=== PATIENT | female | born 1940 | race Caucasian/White ===

== ENCOUNTER 2017-07-02 16:46 | Inpatient (IN) | payer MEDICARE ==
[~2017-07-02 16:46] MED LIST: ISOVUE-370 76%-LOCM 1 ML ONE
[2017-07-02] MEDS ORDERED: Naloxone HCl 0.4 mg/ml Vial ONE (17:03)
--- NOTE | 2017-07-02 17:17 | CT ---
CT HEAD NONCONTRAST 07/02/17 HISTORY: Unresponsive. FINDINGS: There is no evidence of acute intracranial hemorrhage or infarct. The ventricles appear normal in si ze, shape and position. Diffuse cortical atrophy and chronic ischemic small vessel disease are appar ent. There is no mass effect or shift of midline structures. The visualized paranasal sinuses remain well aerated. IMPRESSION: No acute intracranial abnormalities are demonstrated on noncontrast CT head. POS: [facility]
[2017-07-02 17:36] LABS: #Eosinphils 0.1 thou/uL (0.0-0.7); #Lymphocytes 1.3 thou/uL (1.20-3.40); #Monocytes 0.1 thou/uL (0.11-0.59); #Neutrophils 8.4 thou/uL (1.40-6.50); %Basophils 0.3 % (0.0-1.0); %Eosinophils 0.9 % (0.0-10.0); %Lymphocytes 12.9 % (21.0-51.0); %Monocytes 0.8 % (0.0-10.0); Hematocrit 50.2 % (36.0-47.0); Mean Platelet Volume 8.4 fL (7.4-10.4); Red Blood Cell (RBC) Count 5.58 mill/uL (4.20-5.40); White Blood Cell (WBC) Count 9.9 thou/uL (4.8-10.8)
[2017-07-02] MEDS ORDERED: Magnesium Sulfate 2 GM/100 ML BAG ONE (17:46)
[2017-07-02 17:54] LABS: ALT (SGPT) 29 U/L (8-55); AST (SGOT) 47 U/L (5-34); Alkaline Phosphatase 628 U/L (40-150); Anion Gap 19 mmol/L (10-20); BUN (Urea Nitrogen) 25 mg/dL (9.8-20.1); Bilirubin, Total 0.9 mg/dL (0.2-1.2); Calc. Creatinine Clearance 0 mL/min (70-130); Calcium 9.1 mg/dL (7.8-10.44); Carbon Dioxide 16 mmol/L (23-31); Chloride 98 mmol/L (98-107); Estimated GFR-MDRD 25; Globulin 2.3 g/dL (2.4-3.5); Protein, Total 5.9 g/dL (6.0-8.3)
[2017-07-02 17:57] LABS: Troponin I Less than 0.010 ng/mL (< 0.028)
[2017-07-02 17:59] LABS: Lactic Acid - Sepsis 4.1 mmol/L (0.5-2.2)
--- NOTE | 2017-07-02 18:48 | RAD ---
CHEST ONE VIEW 07/02/17 HISTORY: 76-year-old female with altered mental status presents to the ER unresponsive. Monitor leads overlie the chest. Heart size is within normal limits. There is some atherosclerosis o f the aorta. There appear to be some mild linear and interstitial chronic appearing changes. No conf luent pneumonia, overt edema or pleural effusion. IMPRESSION: No acute intrathoracic disease. POS: [facility]
[2017-07-02] MEDS ORDERED: Norepinephrine 8 MG/0.9% NS 250 ML ONE (19:48)
--- NOTE | 2017-07-02 20:53 | CT ---
CT ANGIOGRAM CHEST CT ANGIOGRAM ABDOMEN Exams include 3D rendering. 07/02/17 HISTORY: 76-year-old female with history of abdominal aortic aneurysm. Patient was brought in unresponsive. P atient's GFR was 25 with a creatinine of 1.9. The ER physician was aware of this renal function and indicated that he still wanted the exam performed and that they would be giving the patient IV fluid s. CT ANGIOGRAM CHEST: Exam was performed with aortic dissection protocol. The pulmonary arteries are not sufficiently opacified to evaluate for potential pulmonary embolism. There are atherosclerotic changes of the aorta. Three vessel coronary artery calcific disease. There is evidence of a moderate sized hiatal hernia with fluid within the esophagus, evidence for reflux. There are patchy interstitial, linear, and reticulonodular parenchymal changes bilaterally which ce rtainly could be consistent with some chronic lung disease. There is also some dependent positional changes. In the abdomen, there are atherosclerotic changes of the aorta but no evidence for abdominal aortic aneurysm. There is a calcified plaque at the origin of the celiac artery with some associated stenos is. The visualized liver, pancreas, spleen, and adrenal glands are unremarkable. No renal calculus o r evidence for acute obstruction. There are postoperative laminectomy and pedicle screw placement changes at L4 and with some associated anterolisthesis and some associated artifact. There is noted to be some dilatation of the small bowel including the proximal and mid small bowel. There is also some moderate gas and fluid within the colon which is mildly distended. There is a focal area of jeanne rowing of the right colon with what appears to be potentially some enhancement. I would be concerned of the possibility of this representing a colonic mass or focal area of colonic infection as a less likely possibility. There is some atherosclerotic disease involving the right and left common iliac arteries with some multifocal mild stenotic changes as well as some mild stenosis of the distal abd ominal aorta. IMPRESSION: No CT evidence for aortic dissection or evidence for thoracic or abdominal aortic aneurysm. Some abn ormally dilated small bowel with some air fluid levels as well as some air and fluidy fecal materia l throughout a minimally distended colon raising concern for a bowel obstruction or significant ileu s or some type of nonspecific ileocolitis. Focal area of narrowing in the right colon. I favor this being a potential neoplasm or focal area of infection or inflammation. There is some very tiny trace intraperitoneal fluid noted. Postoperative changes of the lumbar spine. Hiatal hernia with evidence for gastroesophageal reflux. Evidence for bilateral pleural and parenchymal lung changes, possibly chronic. Dilatation of the common bile duct without evidence for acute obstruction. Other findings a s above. POS: [facility]
[2017-07-02 21:18] LABS: Troponin I Less than 0.010 ng/mL (< 0.028)
[2017-07-02] MEDS ORDERED: Norepinephrine 8 MG/250 ML BAG IVPB PRN (22:05)
[2017-07-02] MEDS ORDERED: Promethazine HCl 25 MG/ML VIAL SLOW IVP SCH (22:45)
[2017-07-02] MEDS ORDERED: Acetaminophen 325 MG TAB PO PRN (23:53)
[2017-07-02] MEDS ORDERED: Norepinephrine 8 MG/0.9% NS 250 ML IVPB SCH (23:53)
[2017-07-03 00:12] LABS: Troponin I Less than 0.010 ng/mL (< 0.028)
[2017-07-03] MEDS: Sodium Chloride 0.9% 1,000 ML IV SCH ×4 (00:12→19:52)
[2017-07-03] MEDS: metroNIDAZOLE 500 MG in Premix Bag 1 BAG IVPB SCH ×3 (01:31→17:50)
[2017-07-03] MEDS ORDERED: Sodium Chloride 0.9% 500 ML IVPB SCH (02:30)
[2017-07-03] MEDS ORDERED: Acetaminophen 650 MG Suppository PR PRN (04:32)
--- NOTE | 2017-07-03 04:53 | HP ---
PRIMARY CARE PHYSICIAN: Dr. Olimpia Higgins CHIEF COMPLAINT: Nausea, vomiting and lethargy. HISTORY OF PRESENT ILLNESS: The history of present illness is taken primarily from the patient's hu sband and daughters who are at the bedside. 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 She was in her usual state of health until a coup le of days ago. Her daughter says that in the last few days she has not been herself. She was havi ng some knee pain and was given some doxepin and gabapentin in which she had a fairly bad reaction t o where she was unable to read very well and was having trouble sleeping and was more or less lethar gic. She got better for a day or so and then yesterday she vomited once and began complaining of so me abdominal discomfort and feeling gassy. She had an appointment today to have a preop evaluation for knee surgery. When she was in the physician's office today she began feeling nauseated again an d was having the return of the abdominal pain. She managed to make it through the appointment and t hen towards the end of the appointment, she started needing to vomit again. The orthopedic doctor pat ave her a prescription for Zofran. Her got it filled and as they were leaving gave her 8 mg of the Zofran and on the way from the doctor's office, she began to fall asleep and get drowsy. He r daughter was able to wake her up about 30 minutes later, but then she became almost completely unr esponsive. Because of this, they made a detour to the ER in [place] where she was found to be hypo tensive and in acute renal failure and had a CT scan done which showed some findings consistent with a possible small-bowel obstruction or ileus and a questionable mass in the colon. For this reason, she was transferred to our facility for further evaluation and treatment. During this time she den ied having any fever or chills. No chest pain or shortness of breath. When asked if she has ever h ad a colonoscopy, she says she gets 1 every [address] Gomez and they have been normal. It was noted she had a PET scan a while back, but they said this was not for cancer, but was to try to evaluate for Alzheimer disease, which they said she did not have. REVIEW OF SYSTEMS: CONSTITUTIONAL: Again, no fevers, chills, no night sweats, no weight loss. She has had poor oral i ntake. HEENT: No headaches, no dizziness, no visual changes, no sore throat, rhinorrhea, neck pain, no deloris nopathy. PULMONARY: No hemoptysis, no cough, no wheezing. CARDIOVASCULAR: She denies any chest pain, no shortness of breath, no PND, no orthopnea. GASTROINTESTINAL: As in the history of present illness. GENITOURINARY: No urinary frequency, hematuria, no hesitancy. NEUROLOGIC: No focal weakness, numbness, no seizures. PSYCHIATRIC: No symptoms of anxiety or depression. SKIN AND INTEGUMENT: No skin changes. No rash. PAST MEDICAL HISTORY: Significant for gastroesophageal reflux disease, hypertension, osteoarthritis , and hypothyroidism. PAST SURGICAL HISTORY: She has had spinal stenosis surgery, hysterectomy, and a tummy tuck. ALLERGIES: SULFA, BENADRYL and MORPHINE. FAMILY HISTORY: Significant for lung cancer and hypertension. SOCIAL HISTORY: She is a nonsmoker, nondrinker. She is . MEDICATIONS: Lisinopril 10 mg daily, levothyroxine 88 mcg daily, [place] 7.5 one tablet q.6 hours as needed, Nexium 20 mg daily, Lipitor 20 mg at bedtime, and amlodipine 5 mg daily as needed. PHYSICAL EXAMINATION: GENERAL: She is alert and oriented at this time. She appears to be in some mild distress due to ab dominal discomfort. VITAL SIGNS: Her blood pressure was 105/64, heart rate 96. Respiratory rate is 18. She is afebril e. HEENT: Pupils are equal, round, and reactive. Extraocular muscles are intact. Sclerae are anicter ic. Throat no erythema, no exudates. NECK: No adenopathy, no bruits. LUNGS: Clear. No wheezing, no rales. CARDIOVASCULAR: She has a normal S1, S2. I did not appreciate an S3 or S4. No murmurs, clicks, no rubs. ABDOMEN: Soft, it is mildly distended, it is tympanic to percussion. She has got bowel sounds, but they are very diminished. She has got some diffuse tenderness, but it is localized more on the lef t quadrant. EXTREMITIES: She has got trace pedal edema. NEUROLOGICALLY: The exam is nonfocal. LABORATORY DATA: White blood cell count 9.9, hemoglobin 15.9, hematocrit is 50.2, platelet count is 237. Sodium 128, potassium 5.4, chloride is 98, CO2 16, BUN 25, creatinine 1.92, glucose is 155. She had a lactic acid of 4.1. TSH was 6.0562. Repeat lactic acid is 1.7. ASSESSMENT AND PLAN: 1. This is a pleasant 76-year-old female that presented to the emergency room initially with hypote nsion, abdominal pain, nausea and vomiting. She also has an elevated creatinine of 1.92 and some hy perkalemia and acidosis. I suspect that the patient's hypotension as well as acute renal failure is likely due to prerenal azotemia due to a combination of nausea, vomiting, poor oral intake and rae nopril. 2. Abdominal pain. CT findings suggest a small-bowel obstruction with some questionable area of in flammation versus a mass. She has had colonoscopies in the past which have been negative; however, it is noted that her alkaline phosphatase is elevated as well, the etiology of which is unknown. We will go ahead and consult Gastroenterology as well as General Surgery to help sort out her abdomina l issues. Should she continue to have nausea and vomiting, then we would likely need to place an NG tube to help decompress the stomach. 3. Hyponatremia, I suspect this is related to volume depletion and hopefully this should correct wi th rehydration. If not, then we will do studies to help determine the etiology of the hyponatremia. Her TSH is elevated, I suspect that she is under replaced. Once she is able to tolerate oral medi cations, then we will likely need to increase her levothyroxine dose and again with acute renal fail ure, I suspect this should improve with hydration, if not, then we will check a renal ultrasound and consult Nephrology.
[2017-07-03 04:57] LABS: Anion Gap 12 mmol/L (10-20); BUN (Urea Nitrogen) 33 mg/dL (9.8-20.1); Calc. Creatinine Clearance 29 mL/min (70-130); Calcium 7.1 mg/dL (7.8-10.44); Carbon Dioxide 16 mmol/L (23-31); Chloride 105 mmol/L (98-107); Estimated GFR-MDRD 30
[2017-07-03 05:28] LABS: Band 10 % (5-11); Hematocrit 41.8 % (36.0-47.0); Mean Platelet Volume 8.8 fL (7.4-10.4); Metamyelocyte 5 % (0-0); Neutrophil 78 % (42-75); Red Blood Cell (RBC) Count 4.69 mill/uL (4.20-5.40); White Blood Cell (WBC) Count 11.9 thou/uL (4.8-10.8)
[2017-07-03] MEDS ORDERED: FLU VACC TS2017-18 (>65YR) 0.5 ML SYRINGE IM ONE (09:00)
[2017-07-03] MEDS ORDERED: Sodium Chloride 0.9% 1,000 ML IV SCH (09:00)
[2017-07-03] MEDS: Famotidine/PF 20 mg/2ml Vial SLOW IVP SCH (09:45)
[2017-07-03] MEDS: Heparin 5,000 UNITS/ML VIAL SC SCH ×3 (09:45→19:42)
[2017-07-03] MEDS: Fentanyl 100 MCG/2 ML VIAL SLOW IVP PRN ×4 (10:22→17:51)
--- NOTE | 2017-07-03 11:32 | CON ---
DATE OF CONSULTATION: 07/03/2017 CONSULTING PHYSICIAN: Hospitalist group. REASON FOR CONSULTATION: Septic shock. HISTORY OF PRESENT ILLNESS: Mrs. Bass is a 76-year-old female who was admitted yesterday with low blood pressure. She was seen in an orthopedist's office yesterday. She was being worked up for kne e pain. She began complaining of abdominal discomfort. She passed out at some point. She was brou ght here and found to be hypotensive. She was fluid resuscitated. She has been started on Levophed . She underwent a CT of the abdomen which demonstrated focal narrowing in the right colon with radi ologist favoring this either being potential neoplasm or an area of inflammation/colitis. She also had dilatation of common bile duct without evidence of obstruction. Today, she feels a little devon r after fluid resuscitation, but she is still requiring a Levophed drip. PAST MEDICAL HISTORY: 1. Hypertension. 2. Gastroesophageal reflux. 3. Hypothyroidism. 4. Osteoarthritis. PAST SURGICAL HISTORY: 1. Surgery for spinal stenosis. 2. Hysterectomy. 3. Tummy tuck. FAMILY MEDICAL HISTORY: Remarkable for lung cancer and hypertension. SOCIAL HISTORY: Quit smoking about 30 years ago. 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 ALLERGIES: SULFA, BENADRYL, MORPHINE. MEDICATIONS PRIOR TO ADMISSION: Lisinopril 10 mg daily, levothyroxine 88 mcg daily, [place] 7.5 mg e very 6 hours as needed, Nexium 20 mg daily, Lipitor 20 mg daily, amlodipine 5 mg daily. REVIEW OF SYSTEMS: She has had abdominal pain. She has had no fever or chills. No hematemesis, me desire or hematochezia, hematuria, or dysuria. PHYSICAL EXAMINATION: VITAL SIGNS: Temperature 99.1, pulse 94, blood pressure 98/54. Intake since admission 1559, output , she just voided, but does not have a [place] catheter at this point. HEENT: Unremarkable. NECK: Without adenopathy, JVD, or bruits. LUNGS: Clear to auscultation without wheezing or rhonchi. CARDIAC: S1, S2, slightly tachycardic. There is no murmur. ABDOMEN: She has focal pain on deep palpation on the right upper quadrant. She has no rebound tend erness. EXTREMITIES: Without clubbing, cyanosis, or edema. LABORATORY DATA: Sodium 129, potassium 4.3, chloride 105, CO2 16, BUN 33, creatinine 1.6, glucose 8 8, lactate 4.1 at the time of admission, now is 1.7, troponin 0.01. White blood cell count 11.9, he matocrit 41.8, platelet count 196 with 78% neutrophils, 10% bands, 5% metamyelocytes. Chest x-ray s howed no evidence of mass, effusion, or infiltrate. ASSESSMENT: 1. Likely colitis. 2. Severe volume depletion. 3. Shock, which is likely hypovolemic rather than septic. PLAN: 1. Insert [place]. 2. CVP monitor. 3. Continue antibiotics. 4. Await GI consultation. 5. Wean Levophed drip as tolerated. 6. Continue deep venous thrombosis prophylaxis with heparin. 7. Gastrointestinal prophylaxis with famotidine. 8. N.p.o. at the current time. 9. More aggressive fluid resuscitation. 10. Monitor labs.
--- NOTE | 2017-07-03 13:07 | PDOC.PN ---
- Subjective Encounter Start Date: 07/03/17 Encounter Start Time: 13:05 c/o abd pain fentanyl helping no f/c no n/v - Objective Resuscitation Status: Resuscitation Status FULL:Full Resuscitation MAR Reviewed: Yes Vital Signs & Weight: Vital Signs (12 hours) Temp Pulse Resp Pulse Ox 07/03/17 12:00 99.3 F 07/03/17 08:00 99.1 F 94 22 H 96 07/03/17 05:00 98.5 F Weight Weight 138 lb 10.732 oz Most Recent Monitor Data Heart Rate from ECG 97 NIBP 99/56 NIBP BP-Mean 80 Respiration from ECG 20 SpO2 95 I&O: 07/02/17 07/03/17 07/04/17 06:59 06:59 06:59 Intake Total 1559 1100 Output Total 0 565 Balance 1559 535 Result Diagrams: 07/03/17 03:50 07/03/17 03:50 Phys Exam - Physical Examination Constitutional: NAD HEENT: PERRLA Neck: no JVD Respiratory: no wheezing Cardiovascular: RRR distended, tender Musculoskeletal: pulses present Neurological: moves all 4 limbs Psychiatric: A&O x 3 Dx/Plan (1) Shock Code(s): R57.9 - SHOCK, UNSPECIFIED Status: Acute Comment: hypovolumic vs septic (2) SBO (small bowel obstruction) Code(s): K56.609 - UNSP INTESTNL OBST, UNSP TO PARTIAL VERSUS COMPLETE OBST Status: Acute (3) ARF (acute renal failure) Status: Acute (4) Hyponatremia Code(s): E87.1 - HYPO-OSMOLALITY AND HYPONATREMIA Status: Acute (5) Adult hypothyroidism Code(s): E03.9 - HYPOTHYROIDISM, UNSPECIFIED Status: Acute (6) Lactic acidosis Code(s): E87.2 - ACIDOSIS Status: Acute - Plan * wean levophed as tolerated * monitor urine output * ivf * cont abx * f/u cultures * f/u gi consult
[2017-07-03] MEDS ORDERED: GoLYTELY 4,000 ml Bottle PO SCH (13:30)
--- NOTE | 2017-07-03 14:57 | CON ---
DATE OF CONSULTATION: 07/03/2017 REASON FOR CONSULT: Abdominal distention and pain. HISTORY OF PRESENT ILLNESS: This is a 76-year-old female who presents with a 24-hour history of abd ominal pain associated with some vomiting yesterday, but no diarrhea initially. Pain in the abdomen is described as diffuse left worse than right, never had this kind of pain before. She denies prev ious known bowel obstruction, admitted to the hospital, found to be severely dehydrated fluid resusc itation and on Levophed. Levophed is being weaned off now. Pain is still described as 8/10. She s tarted to have more loose stools now. On her CT scan, she has some inflammatory versus neoplastic c hanges in the right colon and Dr. Varags has seen her already. She notes colonoscopy 3 years ago by Maya Gomez that was within normal limits. PAST MEDICAL HISTORY: Includes GERD, hypertension, hypothyroidism. PAST SURGICAL HISTORY: Includes spinal stenosis, hysterectomy, abdominoplasty. ALLERGIES: SULFA, BENADRYL, MORPHINE. 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 MEDICATIONS: Medicines taken daily at home, lisinopril, levothyroxine, [place], Nexium, Lipitor, amlo dipine. REVIEW OF SYSTEMS: Ten system review of systems otherwise negative unless described above. She is on 4 mcg of Levophed. PHYSICAL EXAMINATION: VITAL SIGNS: Blood pressure 105/55, her pulse is 101, O2 sat 93% on room air. Urine output 685 so far this shift. CHEST: Clear. HEART: Increased rate, regular rhythm without murmur. ABDOMEN: Soft, diffusely distended and diffusely tender with guarding in the left abdomen. No rebo und tenderness. LABORATORY DATA: White blood cell count is 11, hemoglobin 13, platelet count is 196. Sodium 129, p otassium 4.3, creatinine is 1.67. Her lactate was 4 on presentation, is down to 1.7. CT scan as ab ove. ASSESSMENT: Abdominal pain, severe questionable ischemic colitis, with neoplasm in the right colon being less likely given her colonoscopy within 3 years. PLAN: I understand Dr. Vargas has been going to perform endoscopy tomorrow. Continue fluid resuscita tion. We will follow with you.
[2017-07-03] MEDS: Promethazine HCl 25 MG/ML VIAL IM/IV PRN ×2 (15:08→21:02)
[2017-07-03 18:51] LABS: Bilirubin Small (Negative); Blood, Urine Large (Negative); Glucose, Urine (Dipstick) Negative (Negative); Ketone, Urine Negative (Negative); Nitrite Negative (Negative); Protein, Urine (Dipstick) 30 mg/dL (Neg-Trace)
--- NOTE | 2017-07-03 18:52 | CON ---
DATE OF CONSULTATION: 07/03/2017 REQUESTING PHYSICIAN: Dr. Kuhn. REASON FOR CONSULTATION: Possible colon mass. 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 She has been seen in the outpatient setting by my GI colleague, Dr. Corey Gomez. She has had severa l colonoscopies with him. In 2001, she had a small sigmoid polyp removed. In 2007, colonoscopy was normal. In 08/2014, colonoscopy was also normal with a 5-year followup exam recommended. The pavan ent has no chronic gastrointestinal symptoms. Few days ago, the patient had a fall in her bathroom and banged up her chest and abdomen. She has a lso been having some issues with osteoarthritis, but over the weekend, she in addition started to hackett ve nausea and repeated episodes of emesis. She started to have diffuse abdominal pain as well as di arrhea with multiple loose to watery stools per day. These have been brown with no evidence of soledad na or hematochezia. She actually had what sounds like either a syncopal episode or acute change in mental status and was taken to the [place] ER. There she was found to be hypotensive with acute ki dney injury and significantly dehydrated. She has gotten 4 liters of IV fluids here and was actuall y placed on pressors, transferred here last night. In addition, lab evaluation demonstrated a new a lkaline phosphatase elevation to 628, lactic acid up to 4.[address] scan was performed which demons trated some dilation of the small bowel with relative nondilation of the colon, but also an area of focal narrowing in the right colon suspicious for possible mass versus less likely a localized infla mmation. Currently, she is being weaned off of the Levophed. She complains of continued generalize d abdominal pain, though this has improved a bit. She has not had any episodes of emesis for the pa st several hours and says her nausea is improved. She has continued to pass liquid bowel movements. Surgical consultation was requested, which is pending and we are also consulted due to her pain an d the abnormal CT. REVIEW OF SYSTEMS: Full review of systems including constitutional, head, eyes, ears, nose, throat, GI, , cardiovascular, respiratory, musculoskeletal, and neurologic systems is negative except as noted in the HPI. PAST MEDICAL HISTORY: Gastroesophageal reflux disease, hypertension, osteoarthritis, hypothyroidism , colon polyp removed in 2001, last colonoscopy 08/2014 was normal. PAST SURGICAL HISTORY: She has had spinal stenosis surgery, hysterectomy, and tummy tuck. ALLERGIES: SULFA, BENADRYL, MORPHINE. OUTPATIENT MEDICATIONS: Lisinopril, levothyroxine, [place], Nexium 20 mg daily, Lipitor, amlodipine. SOCIAL HISTORY: No smoking or alcohol use. She is . FAMILY HISTORY: Significant for lung cancer and hypertension. PHYSICAL EXAMINATION: VITAL SIGNS: Temperature 99.3, pulse 100, blood pressure 108/59, 95% oxygen saturation on room air. GENERAL: A 76-year-old woman lying in bed comfortably in no distress. MENTAL: Alert and fully oriented and is able to give a detailed coherent history. SKIN: No jaundice, no rashes were palpable. EYES: No scleral icterus. Extraocular movements intact. ENT: Mucous membranes moist, no oral lesions. LYMPH: No submandibular, supraclavicular lymphadenopathy. THYROID: Nontender to palpation. HEART: Regular, borderline tachycardia, no murmur appreciated. CHEST: Clear to auscultation bilaterally. ABDOMEN: Mild distention, tympanitic to percussion. Bowel sounds are hypoactive, but present. The abdomen is soft, tender to palpation diffusely, but no guarding or rebound tenderness. No rigidity . EXTREMITIES: No peripheral edema. VESSELS: Radial pulses 2+ bilaterally. NEUROLOGICAL: Cranial nerves II-XII intact bilaterally. No focal deficits. LABORATORY STUDIES: WBC 11.9, hemoglobin 13.4, platelets 191. Sodium 129, potassium 4.3, BUN 33, c reatinine 1.67. TSH 6.05, troponin negative x3. Lactic acid initially 4.1, now down to 1.7. Total bilirubin 0.9, alkaline phosphatase 628, AST 47, ALT 29. IMAGING STUDIES: CT of the abdomen and pelvis demonstrated moderate hiatal hernia, dilation of the small bowel including the proximal and mid small bowel with only mild distention of the colon which is filled with fluid. There is an area of focal narrowing in the right colon, which is concerning f or possible neoplastic process versus less likely focal inflammatory process. ASSESSMENT AND PLAN: 1. Abnormal CT scan, possible mass in the right colon. 2. Generalized abdominal pain. 3. Acute diarrhea. The patient's presentation is really not classic for right-sided colon mass; however, the CT finding s are certainly concerning. The patient does not appear to have a surgical abdomen at this point or to have a complete bowel obstruction. Her nausea has improved and I think she very well may tolera te bowel prep. For our part, we will plan to administer bowel preparation tonight for anticipated c olonoscopy tomorrow for better visualization of this area of the right colon. The patient understan ds and agrees with the plan. I understand Surgery has been consulted also, and will follow up their recommendations and try to coordinate things as well. In addition, we will go ahead and check stoo l studies for pathogens. Thank you for the consultation. Please call with questions or concerns.
[2017-07-03 18:54] LABS: Bacteria/HPF None Seen HPF (None Seen); WBC/HPF 21-50 HPF (0-3)
[2017-07-03 19:20] LABS: Transitional Epithelial 0-3 HPF (0-3)
[2017-07-03 19:21] LABS: Oval Fat Bodies/HPF None Seen HPF (None Seen); Renal Epithelial None Seen HPF (0-3); Trichomonas/HPF None Seen HPF (None Seen); Yeast-All Forms None Seen HPF (None Seen)
[2017-07-03] MEDS ORDERED: Pantoprazole 40 MG VIAL IVP SCH (19:45)
[2017-07-04] MEDS: Fentanyl 100 MCG/2 ML VIAL SLOW IVP PRN ×3 (01:55→08:27)
[2017-07-04] MEDS: metroNIDAZOLE 500 MG in Premix Bag 1 BAG IVPB SCH ×2 (02:03→14:33)
[2017-07-04 04:17] LABS: Band 35 % (5-11); Hematocrit 31.8 % (36.0-47.0); Mean Platelet Volume 8.6 fL (7.4-10.4); Neutrophil 57 % (42-75); Red Blood Cell (RBC) Count 3.56 mill/uL (4.20-5.40); White Blood Cell (WBC) Count 9.3 thou/uL (4.8-10.8)
[2017-07-04 04:30] LABS: ALT (SGPT) 23 U/L (8-55); AST (SGOT) 43 U/L (5-34); Alkaline Phosphatase 250 U/L (40-150); Anion Gap 9 mmol/L (10-20); BUN (Urea Nitrogen) 26 mg/dL (9.8-20.1); Bilirubin, Total 0.4 mg/dL (0.2-1.2); Calc. Creatinine Clearance 44 mL/min (70-130); Carbon Dioxide 16 mmol/L (23-31); Chloride 115 mmol/L (98-107); Estimated GFR-MDRD 49; Globulin 1.8 g/dL (2.4-3.5); Protein, Total 4.4 g/dL (6.0-8.3)
[2017-07-04] MEDS ORDERED: Dextrose 5% in Water 1,000 ML IV PRN ×2 (04:37→11:51)
[2017-07-04] MEDS ORDERED: Dextrose 50% Abboject 50 ML SYRINGE IVP PRN (04:37)
[2017-07-04] MEDS ORDERED: Fentanyl 100 MCG/2 ML VIAL SLOW IVP SCH (06:00)
[2017-07-04] MEDS ORDERED: Dextrose 5 %-0.45 % NaCl 1,000 ML IV SCH (07:30)
[2017-07-04] MEDS ORDERED: Furosemide 20 MG/2 ML VIAL IVP SCH (07:30)
[2017-07-04] MEDS: Furosemide 40 MG/4 ML VIAL ONE ×2 (07:53→07:55)
[2017-07-04] MEDS: Sodium Chloride 0.9% 1,000 ML IV SCH (07:54)
[2017-07-04] MEDS ORDERED: Piperacillin/Tazobactam 4.5 GM VIAL ONE (08:00)
[2017-07-04] MEDS ORDERED: Piperacillin/Tazobactam 3.375 GM in Sodium Chloride 0.9% 100 ML IVPB SCH (08:00)
--- NOTE | 2017-07-04 08:07 | PRG ---
DATE OF SERVICE: 07/04/2017 The patient is awake and alert. She says her belly is a little better, but she has developed some r espiratory distress this morning. PHYSICAL EXAMINATION: VITAL SIGNS: Temperature is 98.7, pulse 127, blood pressure 141/112. She is off the Levophed drip. Twenty-four hour intake 4864, output 1505. HEENT: Unremarkable. NECK: Without adenopathy or JVD. LUNGS: She has inspiratory crackles at both bases. CARDIOVASCULAR: S1, S2 tachycardic. ABDOMEN: The abdomen is distended, slightly tender to palpation right side. EXTREMITIES: Without clubbing, cyanosis, or edema. LABORATORY DATA: White blood cell count 9.3, hematocrit 31.8, platelet count 121. Sodium 137, pota ssium 3.0, chloride 115, CO2 16, BUN 26, creatinine 1.1, glucose 55. Chest x-ray result pending. ASSESSMENT: 1. Likely some degree of pulmonary edema. 2. Abdominal sepsis - ischemic colitis versus obstruction. 3. Corrected volume depletion with resolved hypertension. PLAN: 1. Check chest x-ray. 2. Hold IV fluids. 3. Diuresis. 4. Correct hypoglycemia. 5. Anticipating colonoscopy later today. 6. Continue the IV antibiotics.
[2017-07-04] MEDS ORDERED: Midazolam HCl 5 mg/5 ml Vial ONE (08:43)
[2017-07-04] MEDS ORDERED: Phenylephrine 10 MG/NS 250 ML 250 ML ONE ×2 (08:43→10:59)
[2017-07-04] MEDS ORDERED: Fentanyl 100 MCG/2 ML VIAL ONE (08:43)
--- NOTE | 2017-07-04 09:11 | PDOC.PN ---
- Subjective Encounter Start Date: 07/04/17 Encounter Start Time: 09:10 pt c/o of abd pain no f/c no n/v c/o some sob - Objective Resuscitation Status: Resuscitation Status FULL:Full Resuscitation MAR Reviewed: Yes Vital Signs & Weight: Vital Signs (12 hours) Temp Pulse Ox 07/04/17 07:52 94 L 07/04/17 05:00 98.7 F 07/04/17 00:00 99.0 F Weight Weight 146 lb 13.246 oz Most Recent Monitor Data Heart Rate from ECG 127 NIBP 156/73 NIBP BP-Mean 98 Respiration from ECG 24 SpO2 93 I&O: 07/03/17 07/04/17 07/05/17 06:59 06:59 06:59 Intake Total 1559 4864 100 Output Total 0 1505 200 Balance 1559 3359 -100 Result Diagrams: 07/04/17 03:32 07/04/17 03:32 Phys Exam - Physical Examination Constitutional: NAD HEENT: PERRLA Neck: no JVD Respiratory: no wheezing Cardiovascular: no significant murmur tender Musculoskeletal: pulses present Neurological: normal sensation Psychiatric: A&O x 3 Dx/Plan (1) Shock Code(s): R57.9 - SHOCK, UNSPECIFIED Status: Resolved Comment: hypovolumic vs septic (2) SBO (small bowel obstruction) Code(s): K56.609 - UNSP INTESTNL OBST, UNSP TO PARTIAL VERSUS COMPLETE OBST Status: Acute (3) ARF (acute renal failure) Status: Acute (4) Hyponatremia Code(s): E87.1 - HYPO-OSMOLALITY AND HYPONATREMIA Status: Acute (5) Adult hypothyroidism Code(s): E03.9 - HYPOTHYROIDISM, UNSPECIFIED Status: Acute (6) Lactic acidosis Code(s): E87.2 - ACIDOSIS Status: Acute (7) Hypoglycemia Code(s): E16.2 - HYPOGLYCEMIA, UNSPECIFIED Status: Acute (8) Hypokalemia Code(s): E87.6 - HYPOKALEMIA Status: Acute - Plan * pt going for exp lap * f/u gi and surg plan * all culture negative so far
[2017-07-04] MEDS ORDERED: PHENYLEPHRINE-NS 100 MCG/ML 10 ML SYRINGE ONE (09:23)
[2017-07-04] MEDS ORDERED: Ondansetron HCl/PF 4 MG/2 ML Vial ONE (09:23)
[2017-07-04] MEDS ORDERED: Dexamethasone 20 MG/5 ML VIAL ONE (09:23)
--- NOTE | 2017-07-04 09:30 | RAD ---
CHEST 1 VIEW: HISTORY: Respiratory distress. Followup. COMPARISON: 07/02/17. FINDINGS: Cardiac silhouette is magnified by projection. Pulmonary vasculature is upper limits of normal. Li near parenchymal opacity over the right upper lobe has increased slightly since the previous study. Mild patchy bibasilar atelectasis is also present. Mediastinum remains midline. There is no evide nce of pneumothorax. laboratory monitor leads overlie the chest. IMPRESSION: Interval increase in bilateral patchy atelectasis, as detailed above. POS: [facility]
[2017-07-04] MEDS ORDERED: Albumin 5% 500 ML ONE (09:54)
[2017-07-04] MEDS ORDERED: Iothalamate Meglumine 60% 50 ML VIAL FS ONE (10:05)
[2017-07-04] MEDS ORDERED: Sodium Bicarb 50 MEQ/50 ML Abboject 8.4% SYRINGE ONE (10:36)
[2017-07-04] MEDS ORDERED: Potassium Chloride 40 MEQ, Admixture Fee 1 EACH in Sodium Chloride 0.9% 250 ML 250 ML IVPB SCH (11:00)
--- NOTE | 2017-07-04 11:16 | OP ---
DATE OF PROCEDURE: 07/04/2017 PREOPERATIVE DIAGNOSIS: Peritonitis. POSTOPERATIVE DIAGNOSIS: Gangrenous perforated cholecystitis. PROCEDURE: Exploratory laparotomy, open cholecystectomy and cholangiogram. SURGEON: Dr. Gabriel Hair HEAD OF MUSIC: No photographer assistant. ESTIMATED BLOOD LOSS: 50 mL. COMPLICATIONS: None. ANESTHESIA: General endotracheal. SPECIMEN: Gallbladder. FINDINGS: Normal cholangiogram. TECHNIQUE: The patient was taken from the ICU to the operating room and laid supine on the operatin g table after central line, art line and general anesthesia is obtained, the abdomen is prepped and draped in a sterile fashion. Midline incision was made, cautery use to dissect down into the abdomi nal cavity. There is some bile-appearing fluid in the abdomen. There was no obvious ischemia to th e bowel or colon. Small bowel was run from ligament of Treitz to ileocecal valve without evidence o f pathology. The right colon, transverse colon, descending colon, sigmoid colon were all without ac tive inflammatory change or pathology In the proximal hepatic flexure of colon there was some bile staining on the serosa, which led me to the gallbladder. The gallbladder does appear gangrenous. T here is active bile drainage from a perforation on the posterior wall. Elijah maneuver was performe d and there was no obvious duodenal pathology. There does appear to be a small duodenal diverticulu m without evidence of pathology, inflammatory change or perforation, no evidence of an inflammatory change in the posterior sac or anterior stomach. Top down dissection of the gallbladder was perform ed all the way down to the cystic artery which was clipped and cut. The cystic duct was dissected a way from the gallbladder. A cholangiogram was performed which shows good contrast flow into a dilat ed common duct, but no obvious distal obstruction. Clamp was placed across the lower cystic duct an d a silk suture was used to tie off the cystic duct. Gallbladder was removed. The abdomen and righ t upper quadrant all irrigated using warm sterile solution until returns were clear. Again, there w as no other pathology in the entire examination of the abdomen. A #19 drain brought out through a r ight upper quadrant incision and sewn in place using silk. All instrument counts, needle counts, an d lap counts were correct. Midline fascia was closed using #1 PDS from the top bottom and tied in t he middle. Subcutaneous tissues were irrigated and closed using 3-0 Vicryl, 4-0 Monocryl, and Steri -Strips. The patient was en route to the ICU in critical condition. All instrument counts, needle counts, lap counts are correct.
[2017-07-04] MEDS ORDERED: Fentanyl 20 MCG/ML 250 ML ONE (11:45)
[2017-07-04] MEDS ORDERED: Dextrose 50% Abboject 50 ML SYRINGE SLOW IVP PRN (11:51)
[2017-07-04] MEDS ORDERED: Ondansetron ODT 4 MG TAB PO PRN (11:51)
[2017-07-04] MEDS ORDERED: Sedation Protocol FS ONE (11:51)
[2017-07-04] MEDS ORDERED: Promethazine HCl 25 MG/ML VIAL IM PRN (11:51)
[2017-07-04] MEDS ORDERED: Fentanyl 100 MCG/2 ML VIAL SLOW IVP PRN ×2 (11:51)
[2017-07-04 12:00] LABS: Oxyhemoglobin 94.7 % (94.0-97.0); Sodium 137 mmol/L (135-148)
[2017-07-04] MEDS ORDERED: Fentanyl 20 MCG/ML 250 ML IVPB SCH (12:01)
[2017-07-04] MEDS ORDERED: Lorazepam 2 MG/ML VIAL SLOW IVP PRN (12:01)
[2017-07-04] MEDS ORDERED: Propofol 1,000 MG/100 ML VIAL IV PRN (12:01)
[2017-07-04] MEDS ORDERED: DISCONTINUE PREVIOUS NARCOTIC PAIN MEDICATIONS AND BENZODIAZEPINES FS SCH (12:01)
[2017-07-04 12:31] LABS: Mechanical Tidal Volume 450 ml; Modified Allen's Test NOT DONE; Vent YES
[2017-07-04 12:32] LABS: Mode SIMV/PSV; Pressure Support 12 cmH2O
[2017-07-04] MEDS: D5 1/2 NS w/20 mEq KCL 1,000 ML IV SCH ×2 (12:57→20:31)
--- NOTE | 2017-07-04 13:07 | PRG ---
DATE OF SERVICE: 07/04/2017 GI INPATIENT DAILY PROGRESS NOTE SUBJECTIVE: During the bowel prep last night, Ms. Bass had worsening abdominal pain. This morning , she was found to have increasing bandemia. Dr. Hair took her down for exploratory laparotomy. She was actually found to have gangrenous cholecystitis with gallbladder perforation. He performed cholecystectomy and intraoperative cholangiogram which was negative. She is now back in the ICU ro , doing well and remains on the ventilator. PHYSICAL EXAMINATION: VITAL SIGNS: Pulse 96, blood pressure 128/68, 99% oxygen saturation on ventilator, temperature is 9 8.3. GENERAL: Sedated on ventilator. HEART: Regular rate and rhythm. LUNGS: Clear to auscultation bilaterally. ABDOMEN: Hypoactive bowel sounds. Surgical site healing well. EXTREMITIES: No peripheral edema. LABORATORY STUDIES: WBC 9.3, hemoglobin 10.2, and platelets 121. Sodium 137, potassium 3.0, BUN 26 , creatinine 1.09, glucose 173, total bilirubin 0.4, alkaline phosphatase down to 250, AST 43, ALT 2 3. ASSESSMENT AND PLAN: 1. Gangrenous cholecystitis, now status post cholecystectomy with negative intraoperative cholangio gram. 2. Abnormal CT of the colon, likely reactive artifact secondary to gangrenous cholecystitis. It ap pears the problem all along was gangrenous cholecystitis with gallbladder perforation. I appreciate Dr. Hair's assistance. Given these developments, I really do not think the CT findings of the r ight colon represent any primary colonic pathology. We will not plan on performing any colonoscopy, certainly not this admission, unless clinical situation were to change. GI will sign off at this time, but please call back with questions or concerns.
[2017-07-04] MEDS: Piperacillin/Tazobactam 3.375 GM in Sodium Chloride 0.9% 100 ML IVPB SCH ×2 (13:12→20:45)
[2017-07-04] MEDS ORDERED: Lactated Ringer's 1,000 ML IV SCH (13:45)
--- NOTE | 2017-07-04 13:52 | PRG ---
DATE OF SERVICE: 07/04/2017 SUBJECTIVE: Sheeba Bass was left intubated after surgery. She has undergone a cholecystectomy. She came out of the OR on pressors. Her Aayush-Synephrine rate i s half of what it was at the end of the surgery when she arrived in the ICU. OBJECTIVE: VITAL SIGNS: Heart rate is now 88, blood pressure 139/72. She is receiving 2 liters of Ringer's la ctate bolus. LUNGS: Clear. HEART: Regular rhythm. ABDOMEN: Distended. LABORATORY DATA: White count this morning was 9.3, hemoglobin was 10.2, anion gap this morning was 6, glucose was 55 this morning, her glucose at 10:14 was 173. Blood gas postoperative 7.37, CO2 of 28, pO2 of 73. IMPRESSION: 1. Respiratory failure/mechanical ventilation after cholecystectomy. 2. Hypoglycemia. She will need serial blood glucose checks.
[2017-07-04] MEDS: Heparin 5,000 UNITS/ML VIAL SC SCH (14:32)
[2017-07-04] MEDS: Famotidine/PF 20 mg/2ml Vial SLOW IVP SCH (14:32)
[2017-07-04] MEDS ORDERED: Lactated Ringer's 2,000 ML IV SCH (15:00)
--- NOTE | 2017-07-04 15:15 | RAD ---
SUPINE PORTABLE CHEST 1 VIEW: Date: 07/04/17 HISTORY: 76-year-old female with life support tube placement. COMPARISON: 07/04/17. FINDINGS: There has been placement of an endotracheal tube, left subclavian catheter, and NG tubes, in satisfa ctory location. No evidence for pneumothorax or other post tube placement complication. Patchy linea r parenchymal changes are noted in the mid lung zones and lower lung zones, nonspecific, possibly ch ronic, although these changes in the bases are definitely more prominent than on the 07/02/17 study. IMPRESSION: NG tube, endotracheal tube, and left subclavian catheter placement without complication. Linear pare nchymal changes in the mid lung zones and lung bases, more prominent than on 06/30/17. Continue shor t-term follow-up. POS: [facility]
--- NOTE | 2017-07-04 15:39 | RAD ---
INTRAOPERATIVE CHOLANGIOGRAM: 07/04/17 HISTORY: 76-year-old female with history of cholecystitis. Single portable fluoroscopic spot film demonstrates contrast within the ductal system. There is empt blayne from the common duct into the duodenum. No evidence for an overt intraductal calculus. IMPRESSION: No overt intraductal calculus. Incomplete visualization of the intrahepatic ducts. POS: [facility]
[2017-07-04] MEDS: Enoxaparin Sodium 40 MG/0.4 ML SYRINGE SC SCH (20:31)
[2017-07-04] MEDS ORDERED: Pantoprazole 40 MG VIAL IVP SCH (21:00)
[2017-07-04] MEDS: HumaLOG 300 UNITS/3 ML VIAL SC PRN (22:29)
[2017-07-05] MEDS: Piperacillin/Tazobactam 3.375 GM in Sodium Chloride 0.9% 100 ML IVPB SCH ×4 (02:25→20:48)
[2017-07-05] MEDS: HumaLOG 300 UNITS/3 ML VIAL SC PRN (02:26)
[2017-07-05] MEDS: D5 1/2 NS w/20 mEq KCL 1,000 ML IV SCH ×3 (02:36→20:48)
[2017-07-05 04:49] LABS: ALT (SGPT) 36 U/L (8-55); AST (SGOT) 56 U/L (5-34); Alkaline Phosphatase 159 U/L (40-150); Anion Gap 11 mmol/L (10-20); BUN (Urea Nitrogen) 19 mg/dL (9.8-20.1); Bilirubin, Total 0.6 mg/dL (0.2-1.2); Calc. Creatinine Clearance 45 mL/min (70-130); Calcium 7.2 mg/dL (7.8-10.44); Carbon Dioxide 21 mmol/L (23-31); Chloride 107 mmol/L (98-107); Estimated GFR-MDRD 47; Globulin 1.7 g/dL (2.4-3.5); Protein, Total 4.2 g/dL (6.0-8.3)
[2017-07-05 05:24] LABS: Band 32 % (5-11); Hematocrit 29.3 % (36.0-47.0); Mean Platelet Volume 9.2 fL (7.4-10.4); Neutrophil 49 % (42-75); Red Blood Cell (RBC) Count 3.34 mill/uL (4.20-5.40); White Blood Cell (WBC) Count 11.3 thou/uL (4.8-10.8)
[2017-07-05 07:34] LABS: Oxyhemoglobin 96.5 % (94.0-97.0); Sodium 135 mmol/L (135-148)
[2017-07-05 07:39] LABS: Modified Allen's Test NOT DONE; Vent YES
[2017-07-05 07:40] LABS: Mechanical Tidal Volume 450 ml; Mode SIMV/PSV; Pressure Support 10 cmH2O
--- NOTE | 2017-07-05 08:09 | RAD ---
CHEST 1 VIEW: HISTORY: Dyspnea. Intubated. Followup. COMPARISON: 07/04/17. FINDINGS: Cardiac silhouette is magnified by projection. Pulmonary vasculature is upper limits of normal. Bi basilar atelectasis is stable. Mediastinum is midline. Lines and tubes are unchanged in position. environmental monitoring technician leads overlie the chest. IMPRESSION: Stable radiographic appearance of the chest. POS: [facility]
[2017-07-05] MEDS: Pantoprazole 40 MG VIAL IVP SCH (08:27)
--- NOTE | 2017-07-05 08:50 | PRG ---
DATE OF SERVICE: 07/05/2017 SUBJECTIVE: Postop day #1, open cholecystectomy. Ms. Bass did well overnight. She is stable, off any pressors. She is awake and nodding to questions. PHYSICAL EXAMINATION: VITAL SIGNS: Her pulse is 100, blood pressure is 133/75. Urine output 483 for the overnight shift, JOAO 285, serosanguineous. ABDOMEN: Soft, it is minimally distended. Her midline wound is healing well. The dressings are re moved. JOAO site is nonbilious. LABORATORY: White blood cell count is 11, hemoglobin 9.7. She still has 32 bands. Sodium 135, pot assium 3.6, creatinine 1.13, alkaline phosphatase 159, bilirubin 0.6. ASSESSMENT: Postop day #1, open abdominal washout, cholecystectomy, and cholangiogram for perforate d acalculous cholecystitis. PLAN: Once she is extubated, if that happens today, likely can start sips of clears.
[2017-07-05] MEDS ORDERED: Piperacillin/Tazobactam 3.375 GM VIAL ONE (13:09)
--- NOTE | 2017-07-05 13:40 | PDOC.PN ---
- Subjective Encounter Start Date: 07/05/17 Encounter Start Time: 13:39 pod #1 intubated opens eyes and follows commands no f/c - Objective Resuscitation Status: Resuscitation Status FULL:Full Resuscitation MAR Reviewed: Yes Vital Signs & Weight: Vital Signs (12 hours) Temp Pulse Resp BP Pulse Ox 07/05/17 11:35 123 H 28 H 92 L 07/05/17 08:00 98.4 F 89 16 99 07/05/17 07:00 98.4 F 07/05/17 06:57 100 133/75 07/05/17 06:00 16 07/05/17 04:00 98.7 F 16 07/05/17 03:01 85 07/05/17 02:00 16 Weight Admit Weight 146 lb Weight 150 lb 12.739 oz Most Recent Monitor Data Heart Rate from ECG 113 NIBP 167/105 NIBP BP-Mean 122 Respiration from ECG 19 SpO2 96 I&O: 07/04/17 07/05/17 07/06/17 06:59 06:59 06:59 Intake Total 4864 4587 Output Total 1505 4433 310 Balance 3359 154 -310 Result Diagrams: 07/05/17 04:00 07/05/17 04:00 Additional Labs: Accuchecks 07/04/17 07/04/17 07/04/17 22:26 20:16 18:48 POC Glucose 189 H 141 H 176 H 07/04/17 07/04/17 07/04/17 17:19 14:49 13:27 POC Glucose 137 H 130 H 95 07/04/17 05:49 POC Glucose 110 Phys Exam - Physical Examination intubated HEENT: moist MMs Neck: no JVD Respiratory: no rales Cardiovascular: no significant murmur dressing in place Musculoskeletal: pulses present Dx/Plan (1) Gangrenous cholecystitis Code(s): K81.0 - ACUTE CHOLECYSTITIS Status: Acute Comment: pod #1 (2) Shock Code(s): R57.9 - SHOCK, UNSPECIFIED Status: Resolved Comment: hypovolumic vs septic (3) SBO (small bowel obstruction) Code(s): K56.609 - UNSP INTESTNL OBST, UNSP TO PARTIAL VERSUS COMPLETE OBST Status: Acute (4) ARF (acute renal failure) Status: Acute (5) Hyponatremia Code(s): E87.1 - HYPO-OSMOLALITY AND HYPONATREMIA Status: Acute (6) Adult hypothyroidism Code(s): E03.9 - HYPOTHYROIDISM, UNSPECIFIED Status: Acute (7) Lactic acidosis Code(s): E87.2 - ACIDOSIS Status: Acute (8) Hypoglycemia Code(s): E16.2 - HYPOGLYCEMIA, UNSPECIFIED Status: Acute (9) Hypokalemia Code(s): E87.6 - HYPOKALEMIA Status: Acute - Plan * 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
[2017-07-05] MEDS: Acetaminophen 1,000 MG in Premix Bag 1 BAG IVPB PRN (15:19)
--- NOTE | 2017-07-05 16:21 | PRG ---
DATE OF SERVICE: 07/05/2017 SUBJECTIVE: Ms. Bass looked great this morning. She is off pressors. She is awake. She had exce llent 4 extremities strength. She was placed on pressure support of 5 and PEEP of 5 and did well wi th that. Her minute volume stayed below 8 liters a minute. OBJECTIVE: LUNGS: Her lungs are clear. HEART: Regular rhythm. ABDOMEN: Soft. LABORATORY DATA AND DIAGNOSTIC DATA: Chest radiograph showed no pulmonary edema. White count 11.3, hemoglobin 9.7, and platelets 115. Sodium 135, potassium 3.6, chloride 107, bicarbonate 21, BUN 19 , and creatinine 1.13. IMPRESSION: 1. Postop hypotension resolved. 2. Status post cholecystectomy. 3. Postop mechanical ventilation for hypotension. PLAN: It was felt that she was a candidate for weaning and extubation. This has been done successf ulsanchez. She has no post-extubation respiratory distress or stridor. Critical care time was 30 minutes.
[2017-07-05] MEDS: Fentanyl 100 MCG/2 ML VIAL SLOW IVP PRN (18:31)
[2017-07-05] MEDS: Enoxaparin Sodium 40 MG/0.4 ML SYRINGE SC SCH (20:49)
[2017-07-06] MEDS: D5 1/2 NS w/20 mEq KCL 1,000 ML IV SCH ×4 (02:32→21:57)
[2017-07-06] MEDS: Piperacillin/Tazobactam 3.375 GM in Sodium Chloride 0.9% 100 ML IVPB SCH ×4 (02:32→21:58)
[2017-07-06] MEDS: Fentanyl 100 MCG/2 ML VIAL SLOW IVP PRN ×2 (05:36→06:32)
[2017-07-06] MEDS: Pantoprazole 40 MG VIAL IVP SCH (07:51)
[2017-07-06] MEDS: Acetaminophen 1,000 MG in Premix Bag 1 BAG IVPB PRN ×2 (09:30→14:10)
--- NOTE | 2017-07-06 15:36 | PRG ---
DATE OF SERVICE: 07/06/2017 SUBJECTIVE: Sheeba Bass looks good. She wants to sit up. OBJECTIVE: VITAL SIGNS: Blood pressure 158/93, heart rate 108, respiratory rate is in the teens to low 20s. O ximetry is 96%. LUNGS: Clear posteriorly. HEART: Regular rhythm. ABDOMEN: Distended, mildly tender. LABORATORY DATA: White count 11.3, hemoglobin 9.7, platelets 115. There is no new lab today. Order labs for tomorrow. IMPRESSION: Status post resection of gangrenous perforated gallbladder. She looks better than I wo seferinod have expected at this point. I answered all of the family's questions.
--- NOTE | 2017-07-06 17:36 | PDOC.PN ---
- Subjective Encounter Start Date: 07/06/17 Encounter Start Time: 17:34 doing well extubated eating cld no f/c pain controlled no flatus yet - Objective Resuscitation Status: Resuscitation Status FULL:Full Resuscitation MAR Reviewed: Yes Vital Signs & Weight: Vital Signs (12 hours) Temp Pulse Resp Pulse Ox 07/06/17 16:00 98.1 F 07/06/17 12:00 98.4 F 07/06/17 08:00 98.7 F 100 20 95 07/06/17 07:00 98.7 F 07/06/17 06:40 93 L 07/06/17 06:38 115 H 16 93 L Weight Admit Weight 146 lb Weight 150 lb 12.739 oz Most Recent Monitor Data Heart Rate from ECG 88 NIBP 145/87 NIBP BP-Mean 127 Respiration from ECG 22 SpO2 97 I&O: 07/05/17 07/06/17 07/07/17 06:59 06:59 06:59 Intake Total 4587 3433 2497 Output Total 4433 4060 1630 Balance 154 -627 867 Result Diagrams: 07/05/17 04:00 07/05/17 04:00 Additional Labs: Accuchecks 07/06/17 07/06/17 07/06/17 14:11 09:35 05:56 POC Glucose 77 83 100 07/06/17 07/05/17 07/05/17 00:10 20:57 17:16 POC Glucose 130 H 108 130 H 07/05/17 07/05/17 07/05/17 12:15 10:10 08:23 POC Glucose 114 H 85 118 H 07/05/17 07/05/17 07/05/17 06:30 04:09 02:17 POC Glucose 86 106 163 H 07/05/17 01:23 POC Glucose 131 H Phys Exam - Physical Examination Constitutional: NAD HEENT: PERRLA Neck: no JVD Respiratory: no wheezing Cardiovascular: no significant murmur Gastrointestinal: soft Musculoskeletal: pulses present Neurological: moves all 4 limbs Psychiatric: A&O x 3 Dx/Plan (1) Gangrenous cholecystitis Code(s): K81.0 - ACUTE CHOLECYSTITIS Status: Acute Comment: pod #1 (2) Shock Code(s): R57.9 - SHOCK, UNSPECIFIED Status: Resolved Comment: hypovolumic vs septic (3) SBO (small bowel obstruction) Code(s): K56.609 - UNSP INTESTNL OBST, UNSP TO PARTIAL VERSUS COMPLETE OBST Status: Acute (4) ARF (acute renal failure) Status: Acute (5) Hyponatremia Code(s): E87.1 - HYPO-OSMOLALITY AND HYPONATREMIA Status: Acute (6) Adult hypothyroidism Code(s): E03.9 - HYPOTHYROIDISM, UNSPECIFIED Status: Acute (7) Lactic acidosis Code(s): E87.2 - ACIDOSIS Status: Acute (8) Hypoglycemia Code(s): E16.2 - HYPOGLYCEMIA, UNSPECIFIED Status: Acute (9) Hypokalemia Code(s): E87.6 - HYPOKALEMIA Status: Acute - Plan * cont current plan * 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
[2017-07-06] MEDS: Ondansetron HCl/PF 4 MG/2 ML Vial IVP PRN (19:06)
[2017-07-06] MEDS ORDERED: Calcium Carbonate 500 MG ChewTAB PO PRN ×2 (21:53)
[2017-07-06] MEDS: Enoxaparin Sodium 40 MG/0.4 ML SYRINGE SC SCH (21:58)
[2017-07-07] MEDS: Acetaminophen 1,000 MG in Premix Bag 1 BAG IVPB PRN ×3 (00:31→19:57)
[2017-07-07] MEDS: Piperacillin/Tazobactam 3.375 GM in Sodium Chloride 0.9% 100 ML IVPB SCH ×4 (02:07→19:58)
[2017-07-07] MEDS: Fentanyl 100 MCG/2 ML VIAL SLOW IVP PRN ×3 (02:11→21:38)
[2017-07-07] MEDS: D5 1/2 NS w/20 mEq KCL 1,000 ML IV SCH (05:05)
[2017-07-07] MEDS ORDERED: Promethazine HCl 25 MG in Sodium Chloride 0.9% 50 ML IVPB SCH (06:00)
[2017-07-07 06:30] LABS: Anion Gap 8 mmol/L (10-20); BUN (Urea Nitrogen) 8 mg/dL (9.8-20.1); Calc. Creatinine Clearance 61 mL/min (70-130); Carbon Dioxide 25 mmol/L (23-31); Chloride 106 mmol/L (98-107); Estimated GFR-MDRD 64
[2017-07-07 06:36] LABS: Phosphorus 1.5 mg/dL (2.3-4.7)
[2017-07-07 06:55] LABS: Band 7 % (5-11); Hematocrit 34.6 % (36.0-47.0); Neutrophil 68 % (42-75); Red Blood Cell (RBC) Count 3.88 mill/uL (4.20-5.40); White Blood Cell (WBC) Count 14.2 thou/uL (4.8-10.8)
[2017-07-07] MEDS: Pantoprazole 40 MG VIAL IVP SCH (07:50)
--- NOTE | 2017-07-07 07:53 | PRG ---
DATE OF SERVICE: 07/07/2017 Mrs. Bass has done well over the weekend, she has no complaints today. PHYSICAL EXAMINATION: VITAL SIGNS: Temperature is 98.3, pulse 88, blood pressure 151/94. Intake 4607 in, 4285 out. HEENT: Unremarkable. NECK: No JVD. LUNGS: A few crackles in the bases. CARDIAC: S1 and S2 regular. ABDOMEN: Nontender. EXTREMITIES: No edema. LABORATORY DATA: Sodium 135, potassium 4, chloride 106, CO2 25, BUN 8, creatinine 0.8, phosphate 1. 5. White blood count 14.2, hematocrit 34.6, platelet count 133. ASSESSMENT: 1. Perforated gallbladder, status post laparotomy. 2. Septic shock, which has resolved. 3. Diabetes mellitus. PLAN: 1. Transfer to the surgical floor 2. Increase activity. 3. Discontinue [place]. 4. Continue the antibiotics.
[2017-07-07] MEDS ORDERED: Sodium Phosphate 40 MMOL in Sodium Chloride 0.9% 250 ML 250 ML IVPB SCH (08:15)
[2017-07-07 09:23] LABS: Oxyhemoglobin 96.7 % (94.0-97.0); Sodium 138 mmol/L (135-148)
[2017-07-07 09:28] LABS: Mode OR ABG; Vent YES
[2017-07-07 09:32] LABS: Mode OR ABG; Oxyhemoglobin 96.7 % (94.0-97.0); Sodium 138 mmol/L (135-148); Vent YES
[2017-07-07] MEDS ORDERED: Dextrose 5 %-0.45 % NaCl 1,000 ML IV SCH ×2 (10:16→14:21)
[2017-07-07] MEDS ORDERED: Meclizine HCl 25 MG TAB PO PRN (10:50)
[2017-07-07 13:01] VITALS: BMI 26.6
[2017-07-07] MEDS ORDERED: Morphine Sulfate 2 MG/ML SYRINGE SLOW IVP PRN (14:21)
--- NOTE | 2017-07-07 14:24 | PDOC.PN ---
- Subjective Encounter Start Date: 07/07/17 Encounter Start Time: 14:22 Patient seen and examined. No new complaints. No overnight events - Objective Resuscitation Status: Resuscitation Status FULL:Full Resuscitation MAR Reviewed: Yes Vital Signs & Weight: Vital Signs (12 hours) Temp Pulse Resp BP Pulse Ox 07/07/17 11:50 98.0 F 97 18 160/98 H 93 L 07/07/17 09:20 97.4 F L 100 18 94 L 07/07/17 08:00 98.6 F 93 24 H 95 Weight Admit Weight 146 lb Weight 150 lb 12.739 oz Most Recent Monitor Data Heart Rate from ECG 93 NIBP 149/80 NIBP BP-Mean 125 Respiration from ECG 24 SpO2 95 I&O: 07/06/17 07/07/17 07/08/17 06:59 06:59 06:59 Intake Total 3433 4606 Output Total 4060 428 340 Balance -627 602 -340 Result Diagrams: 07/07/17 05:00 07/07/17 05:00 Additional Labs: Accuchecks 07/07/17 07/06/17 07/06/17 02:15 22:07 14:11 POC Glucose 98 98 77 Phys Exam - Physical Examination Constitutional: NAD HEENT: PERRLA Neck: no JVD Cardiovascular: no significant murmur drain in place Musculoskeletal: pulses present Neurological: moves all 4 limbs Psychiatric: A&O x 3 Dx/Plan (1) Gangrenous cholecystitis Code(s): K81.0 - ACUTE CHOLECYSTITIS Status: Acute Comment: (2) Shock Code(s): R57.9 - SHOCK, UNSPECIFIED Status: Resolved Comment: hypovolumic vs septic (3) SBO (small bowel obstruction) Code(s): K56.609 - UNSP INTESTNL OBST, UNSP TO PARTIAL VERSUS COMPLETE OBST Status: Acute (4) ARF (acute renal failure) Status: Acute (5) Hyponatremia Code(s): E87.1 - HYPO-OSMOLALITY AND HYPONATREMIA Status: Acute (6) Adult hypothyroidism Code(s): E03.9 - HYPOTHYROIDISM, UNSPECIFIED Status: Acute (7) Lactic acidosis Code(s): E87.2 - ACIDOSIS Status: Acute (8) Hypoglycemia Code(s): E16.2 - HYPOGLYCEMIA, UNSPECIFIED Status: Acute (9) Hypokalemia Code(s): E87.6 - HYPOKALEMIA Status: Acute - Plan * f/u cxr * decrease ivf * surgery in put appreciated * advance diet as tolerated
[2017-07-07] MEDS: Enoxaparin Sodium 40 MG/0.4 ML SYRINGE SC SCH (20:54)
[2017-07-08] MEDS: Piperacillin/Tazobactam 3.375 GM in Sodium Chloride 0.9% 100 ML IVPB SCH ×4 (01:45→20:10)
[2017-07-08 05:20] LABS: Band 3 % (5-11); Hematocrit 33.1 % (36.0-47.0); Mean Platelet Volume 8.6 fL (7.4-10.4); Metamyelocyte 1 % (0-0); Neutrophil 63 % (42-75); Red Blood Cell (RBC) Count 3.71 mill/uL (4.20-5.40); White Blood Cell (WBC) Count 12.5 thou/uL (4.8-10.8)
[2017-07-08 05:27] LABS: Anion Gap 9 mmol/L (10-20); BUN (Urea Nitrogen) 9 mg/dL (9.8-20.1); Calc. Creatinine Clearance 65 mL/min (70-130); Calcium 7.9 mg/dL (7.8-10.44); Carbon Dioxide 26 mmol/L (23-31); Chloride 106 mmol/L (98-107); Estimated GFR-MDRD 69
[2017-07-08] MEDS ORDERED: Furosemide 40 MG/4 ML VIAL SLOW IVP SCH (07:30)
[2017-07-08] MEDS ORDERED: Furosemide 20 MG/2 ML VIAL SLOW IVP SCH (07:45)
--- NOTE | 2017-07-08 07:47 | PRG ---
DATE OF SERVICE: 07/08/2017 The patient is a little short of breath this morning. She is complaining that she did not sleep wel l. PHYSICAL EXAMINATION: VITAL SIGNS: Temperature is 98.3, pulse 87, respirations 18, O2 sat 95% on 2 liters, blood pressure 155/81. HEENT: Unremarkable. NECK: No JVD. LUNGS: Crackles bilaterally. CARDIOVASCULAR: S1 and S2 regular. ABDOMEN: Soft. Surgical site looks good. EXTREMITIES: No edema. LABORATORY DATA: White blood cell count 12.5, hematocrit 33.1, platelet count 156. Sodium 137, pot assium 3.7, chloride 106, CO2 26, BUN 9, creatinine 0.8, glucose 84. Chest x-ray shows cephalization of flow with pulmonary vascular congestion. ASSESSMENT: 1. Fluid overload. 2. Sepsis syndrome. 3. Status post perforated gallbladder. PLAN: 1. Stop IV fluids. 2. Gentle diuresis with 20 mg of Lasix IV. 3. Add EzPAP to nebs. 4. Increase activity as tolerated.
[2017-07-08] MEDS ORDERED: traMADol HCl 50 MG TAB PO PRN (07:52)
--- NOTE | 2017-07-08 08:09 | RAD ---
CHEST ONE VIEW: History: Cough, congestion. Comparison: 07-05-17 FINDINGS: Patient has been extubated, enteric tube has been removed. There are patchy peripheral opacities in both lungs as well as layering left effusion. Central venou s catheter is present with tip at the right atrium. No pneumothorax. IMPRESSION: 1. Right minor fissure as well as left layering effusions, likely pleural fluid. 2. Patchy opacities at both lungs may represent atelectasis or infection. Follow up recommended. POS: [facility]
[2017-07-08] MEDS: Acetaminophen 1,000 MG in Premix Bag 1 BAG IVPB PRN (08:30)
[2017-07-08 10:27] LABS: Phosphorus 3.1 mg/dL (2.3-4.7)
[2017-07-08] MEDS ORDERED: Magnesium Sulfate 4 GM in Sodium Chloride 0.9% 250 ML 250 ML IVPB SCH (10:45)
--- NOTE | 2017-07-08 11:48 | PRG ---
DATE OF SERVICE: 07/08/2017 SUBJECTIVE: Ms. Bass is doing well. She had a bowel movement this morning. Denies nausea. Dain ating clear liquids. She has not been walking much. PHYSICAL EXAMINATION: VITAL SIGNS: Blood pressure 160/95, pulse 87, respirations 16, temperature 98.0. ABDOMEN: Soft. She has some bowel sounds present. Her midline wound is healing well. JOAO drain is serosanguineous, no bile. LABORATORY: White blood cell count is 12, hemoglobin 10, creatinine 0.81. ASSESSMENT: Status post exploratory laparotomy for perforated gallbladder. PLAN: Full liquid diet today. Encouraged ambulation. Added Ultram for pain.
--- NOTE | 2017-07-08 18:55 | PDOC.PN ---
- Subjective Encounter Start Date: 07/08/17 Encounter Start Time: 09:00 Patient seen and examined. No new complaints. No overnight events. Tolerating clear liqd diet - Objective Resuscitation Status: Resuscitation Status FULL:Full Resuscitation MAR Reviewed: Yes Vital Signs & Weight: Vital Signs (12 hours) Temp Pulse Resp BP BP Pulse Ox 07/08/17 16:00 98.7 F 89 16 146/86 H 95 07/08/17 12:26 98.2 F 100 18 145/83 H 94 L 07/08/17 12:02 93 16 98 07/08/17 11:16 87 168/95 H 07/08/17 08:20 98.0 F 87 16 95 07/08/17 08:00 98.0 F 87 16 168/95 H 95 Weight Admit Weight 146 lb Weight 150 lb 12.739 oz Most Recent Monitor Data Heart Rate from ECG 93 NIBP 149/80 NIBP BP-Mean 125 Respiration from ECG 24 SpO2 95 I&O: 07/07/17 07/08/17 07/09/17 06:59 06:59 06:59 Intake Total 4606 2520 1950 Output Total 4285 2960 2980 Balance 321 -851 -1761 Result Diagrams: 07/08/17 04:28 07/08/17 04:28 Additional Labs: Accuchecks 07/07/17 20:33 POC Glucose 87 Phys Exam - Physical Examination Constitutional: NAD Respiratory: no wheezing, no rhonchi Cardiovascular: RRR, no rub Gastrointestinal: soft, positive bowel sounds Musculoskeletal: no edema Dx/Plan (1) Gangrenous cholecystitis Code(s): K81.0 - ACUTE CHOLECYSTITIS Status: Acute Comment: with septic shock (2) Hypomagnesemia Code(s): E83.42 - HYPOMAGNESEMIA Status: Acute Comment: Mg 1.0 (3) Hypothyroidism Code(s): E03.9 - HYPOTHYROIDISM, UNSPECIFIED Status: Chronic (4) CKD (chronic kidney disease) stage 2, GFR 60-89 ml/min Code(s): N18.2 - CHRONIC KIDNEY DISEASE, STAGE 2 (MILD) Status: Chronic (5) HTN (hypertension) Code(s): I10 - ESSENTIAL (PRIMARY) HYPERTENSION Status: Acute (6) Other issues per previous notes - Plan cont current plan of care, continue antibiotics, DVT proph w/lovenox, DVT proph w/SCDs * Cont therapy * Replace Magnessium * AM labs * Cont current meds as below * Resume Levothyroxine and Amlodipine Review of Systems - Review of Systems Respiratory: negative: Cough, Dry, Shortness of Breath, Hemoptysis, SOB with Excertion, Pleuritic Pain, Sputum, Wheezing Cardiovascular: negative: Chest Pain, Palpitations, Orthopnea, Paroxysmal Noc. Dyspnea, Edema, Light Headedness - Medications/Allergies Allergies/Adverse Reactions: Allergies Allergy/AdvReac Type Severity Reaction Status Date / Time diphenhydramine Allergy Verified 07/04/17 08:09 [From Benadryl] Sulfa (Sulfonamide Allergy Verified 07/04/17 08:09 Antibiotics) Medications: Current Medications Albuterol/Ipratropium (Duoneb) 3 ml NEB Q4H PRN PRN Reason: Wheezing Last Admin: 07/06/17 06:38 Dose: 3 ml Albuterol/Ipratropium (Duoneb) 3 ml [id number] Last Admin: 07/08/17 12:02 Dose: 3 ml Alprazolam (Xanax) 0.25 mg PO BIDPRN PRN PRN Reason: Insomnia Amlodipine Besylate (Norvasc) 5 mg PO DAILYPRN PRN PRN Reason: hypertension Calcium Carbonate (Tums) 500 mg PO Q3H PRN PRN Reason: Indigestion Calcium Carbonate (Tums) 1,000 mg PO Q3H PRN PRN Reason: Indigestion Last Admin: 07/06/17 22:04 Dose: 1,000 mg Dextrose/Water (Dextrose 50%) 25 gm SLOW IVP PRN PRN PRN Reason: Hypoglycemia Enoxaparin Sodium (Lovenox) 40 mg SC 2100 WILLIE Last Admin: 07/07/17 20:54 Dose: 40 mg Fentanyl (Sublimaze) 50 mcg SLOW IVP Q1H PRN PRN Reason: Severe Pain (7-10) Last Admin: 07/07/17 21:38 Dose: 50 mcg Hydralazine HCl (Apresoline) 5 mg SLOW IVP Q4H PRN PRN Reason: SBP >160, DBP >100 Last Admin: 07/08/17 11:16 Dose: 5 mg Dextrose/Water (D5w) 1,000 mls @ 0 mls/hr IV .Q0M PRN; As Directed PRN Reason: Hypoglycemia Piperacillin Sod/Tazobactam (Sod 3.375 gm/ Sodium Chloride) 100 mls @ 200 mls/ hr IVPB 0200,0800,1400,[facility] Last Admin: 07/08/17 14:50 Dose: 100 mls Acetaminophen 1,000 mg/ Device 100 mls @ 400 mls/hr IVPB Q6H PRN PRN Reason: Fever/Mild Pain Stop: 07/09/17 07:53 Last Admin: 07/08/17 08:30 Dose: 100 mls Levothyroxine Sodium (Synthroid) 88 mcg PO 0600 [facility] Meclizine HCl (Antivert) 25 mg PO Q8H PRN PRN Reason: Dizziness Morphine Sulfate (Morphine Sulfate) 1 mg SLOW IVP Q4H PRN PRN Reason: Moderate to Severe Pain (6-10) Ondansetron HCl (Zofran Odt) 4 mg PO Q6H PRN PRN Reason: Nausea/Vomiting Last Admin: 07/07/17 05:05 Dose: 4 mg Ondansetron HCl (Zofran) 4 mg IVP Q6H PRN PRN Reason: Nausea Last Admin: 07/06/17 19:06 Dose: 4 mg Pantoprazole Sodium (Protonix) 40 mg PO DAILY [facility] Last Admin: 07/08/17 08:31 Dose: 40 mg Promethazine HCl (Phenergan) 12.5 mg IM Q4H PRN PRN Reason: Nausea Saccharomyces Boulardii (Florastor) 250 mg PO HS [facility] Sodium Chloride (Flush - Normal Saline) 10 ml IVF PRN PRN PRN Reason: Saline Flush Last Admin: 07/06/17 07:51 Dose: 10 ml Tramadol HCl (Ultram) 50 mg PO Q6H PRN PRN Reason: Mild Pain (1-3) Tramadol HCl (Ultram) 100 mg PO Q6H PRN PRN Reason: Moderate Pain (4-6)
[2017-07-08] MEDS: Saccharomyces boulardii 250 MG CAP PO SCH (20:09)
[2017-07-08] MEDS: Enoxaparin Sodium 40 MG/0.4 ML SYRINGE SC SCH (20:09)
[2017-07-08] MEDS: ALPRAZolam 0.25 MG TAB PO PRN (20:09)
[2017-07-08] MEDS: traMADol HCl 50 MG TAB PO PRN (23:16)
[2017-07-09] MEDS: Piperacillin/Tazobactam 3.375 GM in Sodium Chloride 0.9% 100 ML IVPB SCH ×4 (03:12→20:27)
[2017-07-09] MEDS: Acetaminophen 1,000 MG in Premix Bag 1 BAG IVPB PRN (03:19)
[2017-07-09] MEDS: Levothyroxine Sodium 88 MCG TAB PO SCH (05:27)
[2017-07-09 06:07] LABS: Anion Gap 10 mmol/L (10-20); BUN (Urea Nitrogen) 11 mg/dL (9.8-20.1); Calc. Creatinine Clearance 62 mL/min (70-130); Calcium 8.1 mg/dL (7.8-10.44); Carbon Dioxide 28 mmol/L (23-31); Chloride 99 mmol/L (98-107); Estimated GFR-MDRD 65; Magnesium 1.8 mg/dL (1.6-2.6); Phosphorus 2.7 mg/dL (2.3-4.7)
[2017-07-09 06:51] LABS: Band 12 % (5-11); Mean Platelet Volume 8.3 fL (7.4-10.4); Neutrophil 55 % (42-75); Polychromasia SLIGHT = 2-3 cells (100X) (0-2/hpf); Red Blood Cell (RBC) Count 3.61 mill/uL (4.20-5.40); White Blood Cell (WBC) Count 11.3 thou/uL (4.8-10.8)
--- NOTE | 2017-07-09 07:42 | PRG ---
DATE OF SERVICE: 07/09/2017 SUBJECTIVE: She is doing well, has no complaints this morning. She is anxious to start eating. PHYSICAL EXAMINATION: VITAL SIGNS: On exam, temperature 97.9 with a T-max of 99.7, pulse 77, respiratory rate 16, O2 sat 99% on 2 liters, blood pressure 151/89. HEENT: Exam is unremarkable. NECK: No JVD. LUNGS: Clear, without crackles. CARDIAC: S1 and S2 regular. ABDOMEN: Soft. Drain is in place. EXTREMITIES: No edema. LABORATORY DATA: White blood cell count 11.3, hematocrit 32, platelet count 204. Sodium 133, potas sium 3.6, chloride 99, CO2 of 28, BUN 11, creatinine 0.8, glucose 78. ASSESSMENT: 1. Fluid overload, which has improved after diuresis. 2. Sepsis syndrome, which is resolving. 3. Status post perforated gallbladder. PLAN: 1. Probably convert over to oral antibiotics as soon as she is able to tolerate full diet. 2. Continue ambulation. 3. We would expect her to go home within the next few days.
--- NOTE | 2017-07-09 15:00 | PRG ---
DATE OF SERVICE: 07/09/2017 SUBJECTIVE: Ms. Bass is doing well. She is complaining of more bloating after lunch today. She t olerated the full liquid diet without difficulty. Her pain is controlled. She is now ambulatory. PHYSICAL EXAMINATION: VITAL SIGNS: She is afebrile. Vital signs are stable. ABDOMEN: Soft, it is distended. She does have occasional bowel sounds. Midline wound healing well without infection. JOAO drain is serosanguineous. ASSESSMENT: Postoperative exploratory laparotomy, abdominal washout, cholecystectomy. PLAN: Slow advanced diet. I recommend continue full liquids tonight given her bloating. Greta long to GI soft tomorrow.
--- NOTE | 2017-07-09 15:39 | PDOC.PN ---
- Subjective Encounter Start Date: 07/09/17 Encounter Start Time: 14:00 Patient seen and examined. No new complaints. No overnight events. Tolerating full liqd diet. Bloating + - Objective Resuscitation Status: Resuscitation Status FULL:Full Resuscitation Vital Signs & Weight: Vital Signs (12 hours) Temp Pulse Resp BP Pulse Ox 07/09/17 11:36 81 18 93 L 07/09/17 11:33 98.0 F 81 18 162/90 H 94 L 07/09/17 08:45 98.3 F 89 12 94 L 07/09/17 08:00 98.3 F 89 12 148/84 H 93 L 07/09/17 06:10 77 16 99 07/09/17 03:55 97.9 F 86 16 151/89 H 97 Weight Admit Weight 146 lb Weight 150 lb 12.739 oz Most Recent Monitor Data Heart Rate from ECG 93 NIBP 149/80 NIBP BP-Mean 125 Respiration from ECG 24 SpO2 95 I&O: 07/08/17 07/09/17 07/10/17 06:59 06:59 06:59 Intake Total 2520 2810 Output Total 2960 3595 Balance -440 -785 Result Diagrams: 07/09/17 05:40 07/09/17 05:40 Phys Exam - Physical Examination Constitutional: NAD Respiratory: no wheezing, no rhonchi Cardiovascular: RRR, no rub Gastrointestinal: soft, positive bowel sounds Musculoskeletal: no edema Neurological: moves all 4 limbs Dx/Plan (1) Gangrenous cholecystitis Code(s): K81.0 - ACUTE CHOLECYSTITIS Status: Acute Comment: with septic shock (2) Hypothyroidism Code(s): E03.9 - HYPOTHYROIDISM, UNSPECIFIED Status: Chronic (3) CKD (chronic kidney disease) stage 2, GFR 60-89 ml/min Code(s): N18.2 - CHRONIC KIDNEY DISEASE, STAGE 2 (MILD) Status: Chronic (4) HTN (hypertension) Code(s): I10 - ESSENTIAL (PRIMARY) HYPERTENSION Status: Acute (5) Other issues per previous notes (6) Hypomagnesemia Code(s): E83.42 - HYPOMAGNESEMIA Status: Resolved - Plan cont current plan of care, continue antibiotics, PT/OT, DVT proph w/lovenox, DVT proph w/SCDs * Oreilly catheter dced * Cont therapy * AM labs * Cont current meds as below * Resume Lisinopril Review of Systems - Review of Systems Respiratory: negative: Cough, Dry, Shortness of Breath, Hemoptysis, SOB with Excertion, Pleuritic Pain, Sputum, Wheezing Cardiovascular: negative: Chest Pain, Palpitations, Orthopnea, Paroxysmal Noc. Dyspnea, Edema, Light Headedness, Other - Medications/Allergies Allergies/Adverse Reactions: Allergies Allergy/AdvReac Type Severity Reaction Status Date / Time diphenhydramine Allergy Verified 07/04/17 08:09 [From Benadryl] Sulfa (Sulfonamide Allergy Verified 07/04/17 08:09 Antibiotics) Medications: Current Medications Albuterol/Ipratropium (Duoneb) 3 ml NEB Q4H PRN PRN Reason: Wheezing Last Admin: 07/06/17 06:38 Dose: 3 ml Albuterol/Ipratropium (Duoneb) 3 ml EZPAP [id number] OF [facility] Last Admin: 07/09/17 11:36 Dose: 3 ml Alprazolam (Xanax) 0.25 mg PO BIDPRN PRN PRN Reason: Insomnia Last Admin: 07/08/17 20:09 Dose: 0.25 mg Amlodipine Besylate (Norvasc) 5 mg PO DAILYPRN PRN PRN Reason: hypertension Calcium Carbonate (Tums) 500 mg PO Q3H PRN PRN Reason: Indigestion Calcium Carbonate (Tums) 1,000 mg PO Q3H PRN PRN Reason: Indigestion Last Admin: 07/06/17 22:04 Dose: 1,000 mg Dextrose/Water (Dextrose 50%) 25 gm SLOW IVP PRN PRN PRN Reason: Hypoglycemia Enoxaparin Sodium (Lovenox) 40 mg SC 2100 WILLIE Last Admin: 07/08/17 20:09 Dose: 40 mg Fentanyl (Sublimaze) 50 mcg SLOW IVP Q1H PRN PRN Reason: Severe Pain (7-10) Last Admin: 07/07/17 21:38 Dose: 50 mcg Hydralazine HCl (Apresoline) 5 mg SLOW IVP Q4H PRN PRN Reason: SBP >160, DBP >100 Last Admin: 07/08/17 11:16 Dose: 5 mg Dextrose/Water (D5w) 1,000 mls @ 0 mls/hr IV .Q0M PRN; As Directed PRN Reason: Hypoglycemia Piperacillin Sod/Tazobactam (Sod 3.375 gm/ Sodium Chloride) 100 mls @ 200 mls/ hr IVPB 0200,0800,1400,2000 [facility] Last Admin: 07/09/17 14:01 Dose: 100 mls Levothyroxine Sodium (Synthroid) 88 mcg PO 0600 [facility] Last Admin: 07/09/17 05:27 Dose: 88 mcg Lisinopril (Zestril) 10 mg PO DAILY [facility] Meclizine HCl (Antivert) 25 mg PO Q8H PRN PRN Reason: Dizziness Morphine Sulfate (Morphine Sulfate) 1 mg SLOW IVP Q4H PRN PRN Reason: Moderate to Severe Pain (6-10) Ondansetron HCl (Zofran Odt) 4 mg PO Q6H PRN PRN Reason: Nausea/Vomiting Last Admin: 07/07/17 05:05 Dose: 4 mg Ondansetron HCl (Zofran) 4 mg IVP Q6H PRN PRN Reason: Nausea Last Admin: 07/06/17 19:06 Dose: 4 mg Pantoprazole Sodium (Protonix) 40 mg PO DAILY [facility] Last Admin: 07/09/17 08:53 Dose: 40 mg Promethazine HCl (Phenergan) 12.5 mg IM Q4H PRN PRN Reason: Nausea Saccharomyces Boulardii (Florastor) 250 mg PO HS [facility] Last Admin: 07/08/17 20:09 Dose: 250 mg Sodium Chloride (Flush - Normal Saline) 10 ml IVF PRN PRN PRN Reason: Saline Flush Last Admin: 07/06/17 07:51 Dose: 10 ml Tramadol HCl (Ultram) 50 mg PO Q6H PRN PRN Reason: Mild Pain (1-3) Tramadol HCl (Ultram) 100 mg PO Q6H PRN PRN Reason: Moderate Pain (4-6) Last Admin: 07/08/17 23:16 Dose: 100 mg
[2017-07-09] MEDS: Saccharomyces boulardii 250 MG CAP PO SCH (20:28)
[2017-07-09] MEDS: Enoxaparin Sodium 40 MG/0.4 ML SYRINGE SC SCH (20:28)
[2017-07-09] MEDS: ALPRAZolam 0.25 MG TAB PO PRN (21:34)
[2017-07-10] MEDS: traMADol HCl 50 MG TAB PO PRN ×2 (01:38→15:37)
[2017-07-10] MEDS: Piperacillin/Tazobactam 3.375 GM in Sodium Chloride 0.9% 100 ML IVPB SCH ×4 (01:39→20:42)
[2017-07-10] MEDS: Levothyroxine Sodium 88 MCG TAB PO SCH (05:35)
[2017-07-10 06:13] LABS: Anion Gap 10 mmol/L (10-20); BUN (Urea Nitrogen) 8 mg/dL (9.8-20.1); Calc. Creatinine Clearance 66 mL/min (70-130); Calcium 8.4 mg/dL (7.8-10.44); Carbon Dioxide 28 mmol/L (23-31); Chloride 100 mmol/L (98-107); Estimated GFR-MDRD 70; Magnesium 1.6 mg/dL (1.6-2.6); Phosphorus 2.3 mg/dL (2.3-4.7)
[2017-07-10 07:19] LABS: Mean Platelet Volume 8.2 fL (7.4-10.4); White Blood Cell (WBC) Count 10.8 thou/uL (4.8-10.8)
[2017-07-10 07:23] LABS: Band 13 % (5-11); Neutrophil 68 % (42-75); Polychromasia SLIGHT = 2-3 cells (100X) (0-2/hpf); Reactive Lymphocytes 9 % (0-10)
--- NOTE | 2017-07-10 07:38 | PRG ---
DATE OF SERVICE: 07/10/2017 She is doing reasonably well. She complains of urinary incontinence after her Oreilly was taken out y esterday. PHYSICAL EXAMINATION: VITAL SIGNS: Temperature 98.0, pulse 90, respirations 20, 96, blood pressure 159/89. HEENT: Unremarkable. NECK: No JVD. CHEST: Clear to auscultation. CARDIAC: S1 and S2 regular. ABDOMEN: Soft. EXTREMITIES: Decreased edema. LABORATORY DATA: White blood cell count 10.8, hematocrit 31, platelet count 270. Sodium 134, potas sium 3.7, chloride 100, CO2 28, BUN 8, creatinine 0.8, glucose 77. ASSESSMENT: 1. Status post ruptured gallbladder with some degree of peritonitis. 2. Status post acute respiratory failure and septic shock. PLAN: The patient should be able to go home pretty soon. She will probably need another week of an tibiotics orally. Her pulmonary status is quite stable at this time. I think we can go ahead and s top her scheduled nebulization treatments. I think most of her pulmonary issues were volume in natu re.
--- NOTE | 2017-07-10 07:48 | PRG ---
DATE OF SERVICE: 07/10/2017 Mrs. Bass has no complaints. She is passing more gas now. PHYSICAL EXAMINATION: VITAL SIGNS: She is afebrile. Vital signs are stable. ABDOMEN: Soft, less distended. She has active bowel sounds. Midline wound healing well. JOAO drain serosanguineous. ASSESSMENT: Postop exploratory laparotomy, open cholecystectomy, cholangiogram for perforated itzel cystitis. PLAN: Advance GI soft diet. Hep-Lock IV. Encouraged ambulation.
[2017-07-10] MEDS: Lisinopril 10 MG TAB PO SCH (09:05)
[2017-07-10] MEDS ORDERED: HYDROcodone/Acetaminophen 5/325 mg Tablet PO PRN (13:12)
--- NOTE | 2017-07-10 13:15 | PDOC.PN ---
- Subjective Encounter Start Date: 07/10/17 Encounter Start Time: 13:13 - Objective Resuscitation Status: Resuscitation Status FULL:Full Resuscitation MAR Reviewed: Yes Vital Signs & Weight: Vital Signs (12 hours) Temp Pulse Resp BP BP Pulse Ox 07/10/17 11:55 98.0 F 92 22 H 113/61 07/10/17 09:05 159/89 H 07/10/17 08:45 98 F 90 20 07/10/17 04:00 98 F 90 20 159/89 H 96 Weight Admit Weight 146 lb Weight 150 lb 12.739 oz Most Recent Monitor Data Heart Rate from ECG 93 NIBP 149/80 NIBP BP-Mean 125 Respiration from ECG 24 SpO2 95 I&O: 07/09/17 07/10/17 07/11/17 06:59 06:59 06:59 Intake Total 2810 2090 Output Total 3595 660 Balance -785 1430 Result Diagrams: 07/10/17 05:30 07/10/17 05:30 Phys Exam - Physical Examination Constitutional: NAD Respiratory: no wheezing, no rhonchi Scat rales at bases Cardiovascular: RRR, no rub Gastrointestinal: soft, non-tender, positive bowel sounds Musculoskeletal: no edema Dx/Plan (1) Gangrenous cholecystitis Code(s): K81.0 - ACUTE CHOLECYSTITIS Status: Acute Comment: with septic shock (2) Hypothyroidism Code(s): E03.9 - HYPOTHYROIDISM, UNSPECIFIED Status: Chronic (3) CKD (chronic kidney disease) stage 2, GFR 60-89 ml/min Code(s): N18.2 - CHRONIC KIDNEY DISEASE, STAGE 2 (MILD) Status: Chronic (4) HTN (hypertension) Code(s): I10 - ESSENTIAL (PRIMARY) HYPERTENSION Status: Acute (5) Other issues per previous notes - Plan cont current plan of care, DVT proph w/lovenox, DVT proph w/SCDs * One dose Lasix 20 mg PO x 1 * Cont therapy * AM labs * Cont current meds as below * Cont Lisinopril/Amlodipine * Add Mucinex Review of Systems - Review of Systems Respiratory: Cough, Sputum Cardiovascular: negative: Chest Pain, Palpitations, Orthopnea, Paroxysmal Noc. Dyspnea, Edema, Light Headedness, Other Gastrointestinal: negative: Nausea, Vomiting, Abdominal Pain, Diarrhea, Constipation, Melena, Hematochezia, Other - Medications/Allergies Allergies/Adverse Reactions: Allergies Allergy/AdvReac Type Severity Reaction Status Date / Time diphenhydramine Allergy Verified 07/04/17 08:09 [From Benadryl] Sulfa (Sulfonamide Allergy Verified 07/04/17 08:09 Antibiotics) Medications: Current Medications Hydrocodone Bitart/Acetaminophen ([place] 5/325) 1 tab PO Q6H PRN PRN Reason: Moderate Pain (4-6) Stop: 07/11/17 13:13 Albuterol/Ipratropium (Duoneb) 3 ml NEB Q4H PRN PRN Reason: Wheezing Last Admin: 07/06/17 06:38 Dose: 3 ml Alprazolam (Xanax) 0.25 mg PO BIDPRN PRN PRN Reason: Insomnia Last Admin: 07/09/17 21:34 Dose: 0.25 mg Amlodipine Besylate (Norvasc) 5 mg PO DAILYPRN PRN PRN Reason: hypertension Calcium Carbonate (Tums) 500 mg PO Q3H PRN PRN Reason: Indigestion Calcium Carbonate (Tums) 1,000 mg PO Q3H PRN PRN Reason: Indigestion Last Admin: 07/06/17 22:04 Dose: 1,000 mg Dextrose/Water (Dextrose 50%) 25 gm SLOW IVP PRN PRN PRN Reason: Hypoglycemia Enoxaparin Sodium (Lovenox) 40 mg SC 2100 WILLIE Last Admin: 07/09/17 20:28 Dose: 40 mg Fentanyl (Sublimaze) 50 mcg SLOW IVP Q1H PRN PRN Reason: Severe Pain (7-10) Last Admin: 07/07/17 21:38 Dose: 50 mcg Furosemide (Lasix) 20 mg PO ONE WILLIE Guaifenesin (Mucinex) 600 mg PO Q12HR [facility]IE Guaifenesin (Mucinex) 600 mg PO ONE WILLIE Hydralazine HCl (Apresoline) 5 mg SLOW IVP Q4H PRN PRN Reason: SBP >160, DBP >100 Last Admin: 07/08/17 11:16 Dose: 5 mg Hydralazine HCl (Apresoline) 5 mg SLOW IVP Q4H PRN PRN Reason: SBP Greater Than 180 Dextrose/Water (D5w) 1,000 mls @ 0 mls/hr IV .Q0M PRN; As Directed PRN Reason: Hypoglycemia Piperacillin Sod/Tazobactam (Sod 3.375 gm/ Sodium Chloride) 100 mls @ 200 mls/ hr IVPB 0200,0800,1400,2000 [facility] Last Admin: 07/10/17 09:06 Dose: 100 mls Levothyroxine Sodium (Synthroid) 88 mcg PO 0600 [facility] Last Admin: 07/10/17 05:35 Dose: 88 mcg Lisinopril (Zestril) 10 mg PO DAILY [facility] Last Admin: 07/10/17 09:05 Dose: 10 mg Meclizine HCl (Antivert) 25 mg PO Q8H PRN PRN Reason: Dizziness Morphine Sulfate (Morphine Sulfate) 1 mg SLOW IVP Q4H PRN PRN Reason: Moderate to Severe Pain (6-10) Ondansetron HCl (Zofran Odt) 4 mg PO Q6H PRN PRN Reason: Nausea/Vomiting Last Admin: 07/07/17 05:05 Dose: 4 mg Ondansetron HCl (Zofran) 4 mg IVP Q6H PRN PRN Reason: Nausea Last Admin: 07/06/17 19:06 Dose: 4 mg Pantoprazole Sodium (Protonix) 40 mg PO DAILY [facility] Last Admin: 07/10/17 09:06 Dose: 40 mg Promethazine HCl (Phenergan) 12.5 mg IM Q4H PRN PRN Reason: Nausea Saccharomyces Boulardii (Florastor) 250 mg PO HS [facility] Last Admin: 07/09/17 20:28 Dose: 250 mg Sodium Chloride (Flush - Normal Saline) 10 ml IVF PRN PRN PRN Reason: Saline Flush Last Admin: 07/06/17 07:51 Dose: 10 ml Tramadol HCl (Ultram) 50 mg PO Q6H PRN PRN Reason: Mild Pain (1-3) Last Admin: 07/10/17 09:06 Dose: 50 mg Tramadol HCl (Ultram) 100 mg PO Q6H PRN PRN Reason: Moderate Pain (4-6) Last Admin: 07/10/17 01:38 Dose: 100 mg
[2017-07-10] MEDS ORDERED: Furosemide 20 MG TAB PO SCH (13:45)
[2017-07-10] MEDS ORDERED: guaiFENesin ER 600 MG TAB PO SCH (13:45)
[2017-07-10] MEDS: Enoxaparin Sodium 40 MG/0.4 ML SYRINGE SC SCH (20:42)
[2017-07-10] MEDS: Saccharomyces boulardii 250 MG CAP PO SCH (20:43)
[2017-07-10] MEDS: guaiFENesin ER 600 MG TAB PO SCH (20:43)
[2017-07-10] MEDS: Ondansetron HCl/PF 4 MG/2 ML Vial IVP PRN (21:57)
[2017-07-10] MEDS: ALPRAZolam 0.25 MG TAB PO PRN (22:02)
[2017-07-11] MEDS: traMADol HCl 50 MG TAB PO PRN (01:07)
[2017-07-11] MEDS: Piperacillin/Tazobactam 3.375 GM in Sodium Chloride 0.9% 100 ML IVPB SCH ×2 (02:08→08:08)
[2017-07-11 04:07] VITALS: TEMP 98.2
[2017-07-11] MEDS: Levothyroxine Sodium 88 MCG TAB PO SCH (05:45)
[2017-07-11 06:26] LABS: Anion Gap 11 mmol/L (10-20); BUN (Urea Nitrogen) 9 mg/dL (9.8-20.1); Calc. Creatinine Clearance 65 mL/min (70-130); Calcium 8.6 mg/dL (7.8-10.44); Carbon Dioxide 28 mmol/L (23-31); Chloride 97 mmol/L (98-107); Estimated GFR-MDRD 69
[2017-07-11 07:12] LABS: Band 4 % (5-11); Hematocrit 30.8 % (36.0-47.0); Mean Platelet Volume 8.2 fL (7.4-10.4); Neutrophil 71 % (42-75); Red Blood Cell (RBC) Count 3.47 mill/uL (4.20-5.40); White Blood Cell (WBC) Count 10.5 thou/uL (4.8-10.8)
[2017-07-11] MEDS: Lisinopril 10 MG TAB PO SCH (08:06)
[2017-07-11 08:07] VITALS: BP 144/87
[2017-07-11] MEDS: guaiFENesin ER 600 MG TAB PO SCH (08:07)
--- NOTE | 2017-07-11 08:55 | PRG ---
DATE OF SERVICE: 07/11/2017 SUBJECTIVE: She is doing well. She has been ambulating. OBJECTIVE: VITAL SIGNS: Temperature 98.2, pulse 89, blood pressure 144/87, O2 sat 93%. HEENT: Unremarkable. NECK: No JVD. LUNGS: A few crackles in the left base. CARDIAC: S1 and S2 regular. ABDOMEN: Soft. EXTREMITIES: No edema. LABORATORY DATA: White blood cell count 10.5, hematocrit 30.8, platelet count 323. Sodium 133, pot assium 3.4, chloride 97, CO2 of 20, BUN 9, creatinine 0.8, glucose 75. ASSESSMENT: Status post sepsis after ruptured gallbladder. PLAN: Home as soon as cleared by General Surgery. She is stable from a pulmonary standpoint. I hackett ve encouraged incentive spirometry. I will sign off the case. Please recall if further assistance is needed.
--- NOTE | 2017-07-11 16:52 | PDOC.PN ---
- Subjective Encounter Start Date: 07/11/17 Encounter Start Time: 07:50 Subjective: no abd pain, is amb and eating better - Objective Resuscitation Status: Resuscitation Status FULL:Full Resuscitation MAR Reviewed: Yes Vital Signs & Weight: Vital Signs (12 hours) Temp Pulse Resp BP BP Pulse Ox 07/11/17 08:06 144/87 H 07/11/17 08:00 98.2 F 89 16 144/87 H 93 L 07/11/17 07:30 98.2 F 89 16 Weight Admit Weight 146 lb Weight 150 lb 12.739 oz Most Recent Monitor Data Heart Rate from ECG 93 NIBP 149/80 NIBP BP-Mean 125 Respiration from ECG 24 SpO2 95 I&O: 07/10/17 07/11/17 07/12/17 06:59 06:59 06:59 Intake Total 2090 1400 480 Output Total 660 45 10 Balance 1430 1355 470 Result Diagrams: 07/11/17 05:35 07/11/17 05:35 Phys Exam - Physical Examination HEENT: PERRLA, moist MMs Neck: no JVD, supple Respiratory: no wheezing, no rales Cardiovascular: RRR, no significant murmur Gastrointestinal: soft, no distention, positive bowel sounds Musculoskeletal: no edema, pulses present Neurological: non-focal, moves all 4 limbs Psychiatric: A&O x 3 Dx/Plan (1) Gangrenous cholecystitis Code(s): K81.0 - ACUTE CHOLECYSTITIS Status: Acute Comment: s/p laparotomy with cholecytectomy for ruptured gb (2) HTN (hypertension) Code(s): I10 - ESSENTIAL (PRIMARY) HYPERTENSION Status: Chronic Qualifiers: Hypertension type: essential hypertension Qualified Code(s): I10 - Essential (primary) hypertension (3) Hypothyroidism Code(s): E03.9 - HYPOTHYROIDISM, UNSPECIFIED Status: Chronic Qualifiers: Hypothyroidism type: unspecified Qualified Code(s): E03.9 - Hypothyroidism , unspecified (4) Anemia Code(s): D64.9 - ANEMIA, UNSPECIFIED Status: Acute Qualifiers: Anemia type: unspecified type Qualified Code(s): D64.9 - Anemia, unspecified (5) Sepsis Code(s): A41.9 - SEPSIS, UNSPECIFIED ORGANISM Status: Acute Qualifiers: Sepsis type: sepsis due to unspecified organism Qualified Code(s): A41.9 - Sepsis, unspecified organism (6) Peritonitis Code(s): K65.9 - PERITONITIS, UNSPECIFIED Status: Acute Comment: localized sec to gangrenous GB - Plan hemostable -: is tolerating oral soft diet -: surgery has cleared her for discharge -: retired physician at bedside -: to f/u with as adv * .
--- NOTE | 2017-07-11 20:32 | DIS ---
DATE OF ADMISSION: 07/02/2017 DATE OF DISCHARGE: 07/11/2017 DISCHARGE DISPOSITION: To home. PRIMARY DISCHARGE DIAGNOSES: 1. Gangrenous cholecystitis with rupture and localized peritonitis with septic shock. 2. Status post laparotomy with open cholecystectomy. SECONDARY DISCHARGE DIAGNOSES: Hypertension, hypothyroidism, anemia, and sepsis. PROCEDURES DONE DURING HOSPITALIZATION: The patient has had CT dissection protocol done on 07/02/20 17, which showed no evidence of dissection, though some air fluid levels with fecal matter seen with minimally distended colon and abnormally dilated small bowels. There was also suspicion for focal narrowing in the right colon. There was also dilatation of common bile duct without evidence for ac kulwant obstruction. CT brain done on the day of admission showed no acute abnormalities. Patient has had exploratory laparotomy with open cholecystectomy and cholangiogram done for gangrenous perforate d cholecystitis and peritonitis on 07/04/[address] Hair. Blood cultures x2 no growth. Stool f or C. diff was negative. Stool for Campylobacter, E. coli, Shiga toxins 1 and 2, all of which were negative. Discharge white count of 10 with H and H of 10 and 30, platelet count 323. Discharge BUN and creatinine is 9 and 0.8. Patient had a lactic acid of 4.1 on the day of admission with alkalin e phosphatase of 628, AST 47, ALT 29, total bilirubin 0.9, BUN and creatinine of 25 and 1.9 on the d ay of admission. Her sodium was 128 and serum bicarbonate was 16 on the day of admission. DISCHARGE MEDICATIONS: Norvasc 5 mg daily, atorvastatin 20 mg daily, Nexium 20 mg daily, levothyrox ine 88 mcg daily, lisinopril 10 mg daily, Ultram p.r.n. for pain. DISCHARGE PLAN: Patient is to follow up with Dr. Hair as advised and primary care physician in 1 week. BRIEF COURSE DURING HOSPITALIZATION: The patient initially got admitted on 07/02/2017 with complain ts of nausea, vomiting, and lethargy. She was also hypotensive with signs of sepsis and abdominal p ain along with acute kidney injury and metabolic acidosis on admission. She has had consultation [facility] Dr. Hair for General Surgery and Dr. Tim Vargas for Gastroenterology. There was initial suspi cion for ischemic colitis. The patient was closely monitored in IMCU. On the , the patient went into respiratory distress, and was reevaluated by the specialist. She subsequently went to the ope rating room for exploratory laparotomy and was found to have had a gangrenous gallbladder with perfo ration and localized peritonitis. Postoperatively, she was on pressors and was on the ventilator. The patient was successfully weaned off ventilator. She was on med/surg floor subsequently and has done remarkable progress. At the time of discharge, she is on a soft diet and is tolerating it well . She has been cleared for discharge by Dr. Hair. She needs to follow up with Dr. Hair as ad vised. Please see a [id number] documentation on [facility] for the day of discharge.
== END 2017-07-11 10:29 | disposition home or self-care (01) | DRG 853 ==
LOC: ERS 16:46 → CCU 20:32 → SURG A 07-07 09:25
PROVIDERS: ADMIT Internal Medicine Infectious Disease; ATTEND Internal Medicine Infectious Disease
PROC: 02H633Z Insertion of Infusion Device into Right Atrium, Percutaneous Approach (ICD-10-PCS; 2017-07-02)
PROC: 0WJG4ZZ Inspection of Peritoneal Cavity, Percutaneous Endoscopic Approach (ICD-10-PCS; principal; 2017-07-04)
PROC: 0FT44ZZ Resection of Gallbladder, Percutaneous Endoscopic Approach (ICD-10-PCS; 2017-07-04)
PROC: BF101ZZ Fluoroscopy of Bile Ducts using Low Osmolar Contrast (ICD-10-PCS; 2017-07-04)
DX: A41.9 Sepsis, unspecified organism (principal); K82.2 Perforation of gallbladder; J96.01 Acute respiratory failure with hypoxia; R65.21 Severe sepsis with septic shock; N17.9 Acute kidney failure, unspecified; K65.9 Peritonitis, unspecified; K81.0 Acute cholecystitis; I95.9 Hypotension, unspecified; E87.2 Acidosis; E87.1 Hypo-osmolality and hyponatremia; E87.5 Hyperkalemia; K21.9 Gastro-esophageal reflux disease without esophagitis; E03.9 Hypothyroidism, unspecified; Z88.5 Allergy status to narcotic agent; Z88.2 Allergy status to sulfonamides; Z88.8 Allergy status to other drugs, medicaments and biological substances; I95.81 Postprocedural hypotension; E11.649 Type 2 diabetes mellitus with hypoglycemia without coma; D64.9 Anemia, unspecified; E86.0 Dehydration; M19.90 Unspecified osteoarthritis, unspecified site; Z87.891 Personal history of nicotine dependence; I12.9 Hypertensive chronic kidney disease with stage 1 through stage 4 chronic kidney disease, or unspecified chronic kidney disease; E11.22 Type 2 diabetes mellitus with diabetic chronic kidney disease; N18.2 Chronic kidney disease, stage 2 (mild); E83.42 Hypomagnesemia
CPT/HCPCS: 36415; 36416; 36556; 47532; 70450; 71010; 71275; 80048; 80053; 80069; 81001; 82553; 82805; 83605; 83630; 83735; 84100; 84443; 84484; 85007; 85025; 85027; 87015; 87040; 87045; 87046; 87324; 87449; 87899; 88304; 93005; 94002; 94003; 94640; 94760; 96361; 96365; 96375; A4216; C1751; C9113; G8978-GP-CK; G8979-GP-CI; J0131; J0360; J0744; J1100; J1170; J1644; J1650; J1940; J2250; J2270; J2310; J2405; J2543; J2550; J2704; J3010; J3475; J3480; J7050; J7620; P9045; Q0162; Q9961; S0028

== ENCOUNTER 2018-02-10 07:19 | Outpatient (CLI) | payer MEDICARE | END 2018-02-10 07:20 | disposition home or self-care (01) | LOC: BICULT 07:19 | PROVIDERS: ATTEND Internal Medicine Nephrology | DX: I13.10 Hypertensive heart and chronic kidney disease without heart failure, with stage 1 through stage 4 chronic kidney disease, or unspecified chronic kidney disease (principal); N18.2 Chronic kidney disease, stage 2 (mild); E03.9 Hypothyroidism, unspecified; K59.00 Constipation, unspecified; E78.5 Hyperlipidemia, unspecified; M54.40 Lumbago with sciatica, unspecified side; G89.29 Other chronic pain; M19.90 Unspecified osteoarthritis, unspecified site; N32.89 Other specified disorders of bladder; D64.9 Anemia, unspecified; G47.9 Sleep disorder, unspecified; Z96.1 Presence of intraocular lens | CPT/HCPCS: 76700; 76770 ==

== ENCOUNTER 2018-06-14 14:38 | Emergency (ER) | payer MEDICARE ==
[2018-06-14 16:17] LABS: #Eosinphils 0.2 thou/uL (0.0-0.7); #Lymphocytes 1.1 thou/uL (1.20-3.40); #Monocytes 0.6 thou/uL (0.11-0.59); #Neutrophils 10.1 thou/uL (1.40-6.50); %Basophils 0.2 % (0.0-1.0); %Eosinophils 1.7 % (0.0-10.0); %Lymphocytes 8.9 % (21.0-51.0); %Monocytes 4.7 % (0.0-10.0); %Neutrophils 84.4 % (42.0-75.0); Hemoglobin 13.9 g/dL (12.0-16.0); Mean Corpuscular HGB CONC 32.5 g/dL (32.0-36.0); Mean Corpuscular Hemoglobin 28.7 pg (27.0-31.0); Mean Corpuscular Volume 88.4 fL (78.0-98.0); Mean Platelet Volume 9.3 fL (7.4-10.4); Platelet Count 227 thou/uL (130-400); RBC Distribution Width 13.5 % (11.5-14.5); Red Blood Cell (RBC) Count 4.84 mill/uL (4.20-5.40)
[2018-06-14 16:19] LABS: Bilirubin Negative (Negative); Blood, Urine Negative (Negative); Clarity CLEAR (Clear); Glucose, Urine (Dipstick) Negative (Negative); Leukocyte Negative (Negative); Nitrite Negative (Negative); Protein, Urine (Dipstick) Negative (Neg-Trace); Specific Gravity, Urine 1.008 (1.002-1.036); Urobilinogen 0.2 mg/dL (0.2-1.0)
[2018-06-14 16:30] LABS: Amphetamine Not Detected (NotDetected); Barbiturates Screen Not Detected (NotDetected); Benzodiazepine Screen Not Detected (NotDetected); Cocaine Metabolite Screen Not Detected (NotDetected); Medtox Reader # READER 4; Methadone Not Detected (NotDetected); Methamphetamine Not Detected (NotDetected); Opiate Screen Detected (NotDetected); Oxycodone Screen Not Detected (NotDetected); Phencyclidine (PCP) Not Detected (NotDetected); THC/Cannabinoid Screen Not Detected (NotDetected); Tricyclic Screen Detected (NotDetected)
[2018-06-14 16:31] LABS: Medtox Control Line Valid? VALID (VALID)
[2018-06-14 16:38] LABS: Acetaminophen Less than 6.0 mcg/mL (10.0-30.0); Alcohol Less than 10 mg/dL (Less than 10); Salicylate Less than 8.0 mg/dL (15.0-30.0)
[2018-06-14 16:41] LABS: ALT (SGPT) 22 U/L (8-55); AST (SGOT) 22 U/L (5-34); Albumin 4.4 g/dL (3.4-4.8); Alkaline Phosphatase 100 U/L (40-150); Anion Gap 15 mmol/L (10-20); BUN (Urea Nitrogen) Less than 4 mg/dL (9.8-20.1); Bilirubin, Total 0.7 mg/dL (0.2-1.2); CK (CPK) 96 U/L (29-168); Calc. Creatinine Clearance 0 mL/min (70-130); Calcium 9.6 mg/dL (7.8-10.44); Carbon Dioxide 28 mmol/L (23-31); Chloride 99 mmol/L (98-107); Estimated GFR-MDRD 21; Globulin 3.1 g/dL (2.4-3.5); Glucose 105 mg/dL (83-110); Lipase 30 U/L (8-78); Potassium 3.6 mmol/L (3.5-5.1); Protein, Total 7.5 g/dL (6.0-8.3); Sodium 138 mmol/L (136-145)
[2018-06-14 16:41] LABS: CKMB 5.2 ng/mL (0-6.6); Troponin I Less than 0.010 ng/mL (< 0.028)
--- NOTE | 2018-06-14 18:26 | CT ---
CT ABDOMEN AND PELVIS WITHOUT CONTRAST: HISTORY: Upper abdominal pain. COMPARISON: Aortic dissection protocol from 2017. FINDINGS: The lung bases are clear. No pericardial effusion. Prior cholecystectomy. No nephroureterolithiasis or hydroureteronephrosis. No secondary evidence of a recently passed stone . Extensive atherosclerotic plaque throughout the aorta and iliac system. 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 Posterior spinal fusion hardware is simil ar. Old left inferior pubic ramus fracture. No free intraperitoneal gas or fluid. No dilated loops of l arge or small bowel. Noncontrast evaluation of the liver and spleen are unremarkable, as well as the pancreas. Buford effect of common bile duct. The appendix is visualized and is normal. IMPRESSION: 1. No acute inflammatory process in the abdomen or pelvis. 2. No nephroureterolithiasis or hydroureteronephrosis. 3. No secondary evidence of a recently passed stone. POS: [facility]
== END 2018-06-14 19:03 | disposition home or self-care (01) ==
LOC: ERS 14:38
DX: R11.2 Nausea with vomiting, unspecified (principal); A41.9 Sepsis, unspecified organism; I10 Essential (primary) hypertension; E78.00 Pure hypercholesterolemia, unspecified; I25.10 Atherosclerotic heart disease of native coronary artery without angina pectoris; Z87.891 Personal history of nicotine dependence; Z79.899 Other long term (current) drug therapy
CPT/HCPCS: 36415; 74176; 80053; 80306; 80307; 81003; 82550; 82553; 83690; 84484; 85025; 93005

== ENCOUNTER 2018-12-01 13:38 | Outpatient (CLI) | payer MEDICARE ==
--- NOTE | 2018-12-03 09:03 | MMO ---
Bilateral MAMMO Bilat Screen [facility]. CLINICAL HISTORY: Patient is 78 years old and is seen for screening. The patient has no family history of breast cancer. The patient has no personal history of cancer. The patient has a history of left Stereotatic Biopsy in September, - benign. VIEWS: The views performed were: bilateral craniocaudal and bilateral mediolateral oblique. FILMS COMPARED: The present examination has been compared to prior imaging studies performed at 12/24/2000, 04/22/2002, 10/12/2003, 12/07/2004, 11/04/2006, 10/01/2007, 10/04/2009, 05/26/2013, 05/27/2014 and 09/08/2015. MAMMOGRAM FINDINGS: There are scattered fibroglandular densities. There are benign appearing calcifications seen in both breasts. There are no suspicious masses, calcifications or areas of architectural distortion. IMPRESSION: CALCIFICATIONS IN BOTH BREASTS ARE BENIGN. A ROUTINE FOLLOW-UP MAMMOGRAM IN 1 YEAR IS RECOMMENDED. THE RESULTS OF THIS EXAM WERE SENT TO THE PATIENT. ACR BI-RADS Category 2 - Benign finding MAMMOGRAPHY NOTE: 1. A negative mammogram report should not delay a biopsy if a dominant of clinically suspicious mass is present. 2. Approximately 10% to 15% of breast cancers are not detected by mammography. 3. Adenosis and dense breasts may obscure an underlying neoplasm.
== END 2018-12-01 13:39 | disposition home or self-care (01) ==
LOC: BICMAMMO 13:38
PROVIDERS: ATTEND Family Medicine
DX: Z12.31 Encounter for screening mammogram for malignant neoplasm of breast (principal); R92.1 Mammographic calcification found on diagnostic imaging of breast
CPT/HCPCS: 77063; 77067

== ENCOUNTER 2018-12-08 12:32 | Outpatient (CLI) | payer MEDICARE ==
--- NOTE | 2018-12-08 15:33 | MRI ---
MRI BRAIN WITHOUT CONTRAST: HISTORY: Cognitive impairment. Headaches. The patient also had recent trauma. She fell last week and hit th e right side of her head. COMPARISON: CT examination from 07/12/2017. FINDINGS: There is fairly pronounced atrophy. The ventricular size is similar to the prior examination. Exten sive T2 and FLAIR white matter changes are consistent with some extensive chronic ischemic white lois er change. There are no signs for any intracerebral hemorrhage, and no extraaxial fluid collections are identified. On the diffusion-weighted sequence, there are no signs of any acute infarct. The pituitary is normal in size. The mastoid air cells and visualized sinuses are clear. IMPRESSION: Moderately severe atrophy with marked chronic white matter change. Findings appear stable. POS: [facility]
== END 2018-12-08 12:33 | disposition home or self-care (01) ==
LOC: BICMRI 12:32
PROVIDERS: ATTEND Family Medicine
DX: G31.84 Mild cognitive impairment of uncertain or unknown etiology (principal); G31.9 Degenerative disease of nervous system, unspecified; G93.9 Disorder of brain, unspecified
CPT/HCPCS: 70551

== ENCOUNTER 2019-10-03 16:36 | Emergency (ER) | payer MEDICARE ==
[2019-10-03 17:38] LABS: #Basophils 0.1 thou/uL (0.0-0.2); #Eosinphils 0.3 thou/uL (0.0-0.7); #Lymphocytes 1.8 thou/uL (1.20-3.40); #Monocytes 0.7 thou/uL (0.11-0.59); #Neutrophils 4.9 thou/uL (1.40-6.50); %Eosinophils 3.5 % (0.0-10.0); %Lymphocytes 22.9 % (21.0-51.0); %Monocytes 8.6 % (0.0-10.0); Hemoglobin 14.2 g/dL (12.0-16.0); Mean Corpuscular HGB CONC 32.3 g/dL (32.0-36.0); Mean Corpuscular Hemoglobin 29.1 pg (27.0-31.0); Mean Corpuscular Volume 90.2 fL (78.0-98.0); Mean Platelet Volume 10.2 fL (7.4-10.4); Platelet Count 189 thou/uL (130-400); RBC Distribution Width 12.9 % (11.5-14.5); Red Blood Cell (RBC) Count 4.87 mill/uL (4.20-5.40); White Blood Cell (WBC) Count 7.7 thou/uL (4.8-10.8)
--- NOTE | 2019-10-03 18:02 | RAD ---
RIGHT KNEE 4 VIEWS: Date: 10/03/19 HISTORY: Knee injury. FINDINGS: Total knee prosthesis is in good position. No evidence of loosening or fracture. No joint effusion. V ascular calcifications are seen. IMPRESSION: No evidence of acute injury. POS: [facility]
[2019-10-03 18:03] LABS: ALT (SGPT) 21 U/L (8-55); AST (SGOT) 25 U/L (5-34); Albumin 4.7 g/dL (3.4-4.8); Alkaline Phosphatase 89 U/L (40-110); Anion Gap 16 mmol/L (10-20); BUN (Urea Nitrogen) 19 mg/dL (9.8-20.1); Bilirubin, Total 0.7 mg/dL (0.2-1.2); CK (CPK) 102 U/L (29-168); Calc. Creatinine Clearance 0 mL/min (70-130); Carbon Dioxide 26 mmol/L (23-31); Chloride 103 mmol/L (98-107); Estimated GFR-MDRD 38; Globulin 2.7 g/dL (2.4-3.5); Glucose 94 mg/dL (83-110); Protein, Total 7.4 g/dL (6.0-8.3); Sodium 140 mmol/L (136-145)
--- NOTE | 2019-10-03 18:03 | RAD ---
AP PELVIS: Date: 10/03/19 HISTORY: Fell with pelvic pain. FINDINGS: Old left superior pubic rami and inferior pubic rami fractures are noted. No acute fracture of the [place] pelvic ring. Postoperative changes of the spine are noted. IMPRESSION: No acute injury. POS: [facility]
--- NOTE | 2019-10-03 18:04 | RAD ---
PORTABLE CHEST: Date: 10/03/19 HISTORY: Shortness of breath and chest pain. COMPARISON: 07/08/17 study. FINDINGS: Heart size within normal limits. There are atherosclerotic changes of the aorta. The lungs are clear of infiltrates. There are scoliotic changes of the spine. IMPRESSION: No active intrathoracic disease. POS: [facility]
--- NOTE | 2019-10-03 18:10 | CT ---
CT OF BRAIN PERFORMED WITHOUT CONTRAST ENHANCEMENT: Date: 10/03/19 HISTORY: Fall with head injury. COMPARISON: 07/02/17. FINDINGS: There is generalized ventricular and sulcal prominence with decreased attenuation to the periventricu lar white matter. There are no signs of intracerebral hemorrhage or extra-axial fluid collections. Th e mastoid air cells and visualized sinuses are clear. IMPRESSION: No acute intracranial abnormalities. POS: [facility]
--- NOTE | 2019-10-03 18:13 | CT ---
CT FACIAL BONES PERFORMED WITHOUT CONTRAST ENHANCEMENT: Date: 10/03/19 HISTORY: Facial trauma. FINDINGS: There is a left periorbital soft tissue hematoma present. The nasal bone and zygomatic arches are int act. The pterygoid processes are also intact. No air fluid levels within the sinuses. There is moderate mucosal disease in the posterior ethmoid an d left sphenoid air cell region. There are no signs of maxillary or orbital fractures. Condyles are in normal position. No mandibular fracture. IMPRESSION: No CT evidence of fracture of the facial bones. POS: [facility]
--- NOTE | 2019-10-03 18:14 | CT ---
CT CERVICAL SPINE PERFORMED WITHOUT CONTRAST ENHANCEMENT: Date: 10/03/19 HISTORY: Fall with neck pain. FINDINGS: There are severe arthritic changes of the spine. Marked disc narrowing from the C3-4 to the C6-7 leve ls. The bones appear demineralized. There are moderate degenerative facet changes present. There is l eft-sided foraminal narrowing at C4-5 and C5-6. There is no CT evidence for fracture. The lung apices are clear. IMPRESSION: Marked arthritic changes of the spine. No CT evidence for fracture. POS: [facility]
--- NOTE | 2019-10-03 18:36 | CT ---
CT ABDOMEN AND PELVIS WITHOUT CONTRAST: Date: 10/03/2019 HISTORY: Fall, abdominal pain. FINDINGS: Absence of oral and IV contrast reduces the sensitivity of exam, particularly for evaluation of solid organs and bowel. The lung bases are clear. A small hiatal hernia is present. The patient is status post cholecystectom y and hysterectomy. A normal appearing appendix is present. There are vascular calcifications without evidence of aneurysmal dilatation of the abdominal aorta. The urinary bladder is well distended and appears intact. There are postop changes of posterior spinal fusion with bilateral pedicle screws at L4 and L5 levels with intradiscal prosthesis in place. There is Grade I anterolisthesis of L4 over L5 . No compression fracture is seen. IMPRESSION: No evidence of secondary signs of solid organ injury. Exam limited due to absence of oral and IV cont rast. POS: [facility]
== END 2019-10-03 20:10 | disposition home or self-care (01) ==
LOC: ERS 16:36
DX: S00.12XA Contusion of left eyelid and periocular area, initial encounter (principal); I10 Essential (primary) hypertension; E78.00 Pure hypercholesterolemia, unspecified; I25.10 Atherosclerotic heart disease of native coronary artery without angina pectoris; Z87.891 Personal history of nicotine dependence; Z79.899 Other long term (current) drug therapy; W18.30XA Fall on same level, unspecified, initial encounter
CPT/HCPCS: 36415; 70450; 70486; 71045; 72125; 72170; 74176; 80053; 82550; 84484; 85025; 93005

== ENCOUNTER 2019-12-03 13:49 | Outpatient (CLI) | payer MEDICARE ==
--- NOTE | 2019-12-03 14:56 | MMO ---
Bilateral MAMMO Bilat Screen [facility]. CLINICAL HISTORY: Patient is 79 years old and is seen for screening. The patient has the following family history of breast cancer: maternal aunt. The patient has no personal history of cancer. The patient has a history of left Stereotatic Biopsy in September, - benign. VIEWS: The views performed were: bilateral craniocaudal with tomosynthesis; bilateral mediolateral oblique with tomosynthesis; and bilateral exaggerated craniocaudal. FILMS COMPARED: The present examination has been compared to prior imaging studies performed at [facility] on 05/27/2014, 09/08/2015 and 12/01/2018. This study has been interpreted with the assistance of computer-aided detection. MAMMOGRAM FINDINGS: There are scattered fibroglandular densities. Finding 1: There are stable benign appearing calcifications seen in both breasts. Finding 2: There are stable benign appearing densities seen in both breasts. Finding 3: There is a stable biopsy clip seen in the left breast. There are no suspicious masses, suspicious calcifications, or new areas of architectural distortion. IMPRESSION: THERE IS NO MAMMOGRAPHIC EVIDENCE OF MALIGNANCY. A ROUTINE FOLLOW-UP MAMMOGRAM IN 1 YEAR IS RECOMMENDED. THE RESULTS OF THIS EXAM WERE SENT TO THE PATIENT. ACR BI-RADS Category 2 - Benign finding MAMMOGRAPHY NOTE: 1. A negative mammogram report should not delay a biopsy if a dominant of clinically suspicious mass is present. 2. Approximately 10% to 15% of breast cancers are not detected by mammography. 3. Adenosis and dense breasts may obscure an underlying neoplasm. Reported by: BEE ANDRE MD Electonically Signed: [id number]
== END 2019-12-03 13:50 | disposition home or self-care (01) ==
LOC: BICMAMMO 13:49
PROVIDERS: ATTEND Family Medicine
DX: Z12.31 Encounter for screening mammogram for malignant neoplasm of breast (principal); Z80.3 Family history of malignant neoplasm of breast; Z91.89 Other specified personal risk factors, not elsewhere classified
CPT/HCPCS: 77063; 77067

== ENCOUNTER 2021-01-01 14:35 | Outpatient (CLI) | payer MEDICARE | END 2021-01-01 14:36 | disposition home or self-care (01) | LOC: BICMAMMO 14:35 | PROVIDERS: ATTEND Family Medicine | DX: Z12.31 Encounter for screening mammogram for malignant neoplasm of breast (principal); M81.0 Age-related osteoporosis without current pathological fracture; M85.851 Other specified disorders of bone density and structure, right thigh; M85.852 Other specified disorders of bone density and structure, left thigh; Z80.3 Family history of malignant neoplasm of breast; Z91.89 Other specified personal risk factors, not elsewhere classified | CPT/HCPCS: 77063; 77067; 77080 ==

== ENCOUNTER 2021-03-04 23:39 | Emergency (ER) | payer MEDICARE ==
[2021-03-05 00:28] LABS: #Eosinphils 0.2 thou/uL (0.0-0.7); #Monocytes 0.6 thou/uL (0.11-0.59); #Neutrophils 2.8 thou/uL (1.40-6.50); %Basophils 0.6 % (0.0-1.0); %Lymphocytes 35.5 % (21.0-51.0); %Monocytes 11.1 % (0.0-10.0); %Neutrophils 48.9 % (42.0-75.0); Hemoglobin 12.7 g/dL (12.0-16.0); Mean Corpuscular HGB CONC 33.6 g/dL (32.0-36.0); Mean Corpuscular Hemoglobin 30.5 pg (27.0-31.0); Mean Corpuscular Volume 90.7 fL (78.0-98.0); Mean Platelet Volume 10.1 fL (7.4-10.4); Platelet Count 135 thou/uL (130-400); RBC Distribution Width 12.9 % (11.5-14.5); Red Blood Cell (RBC) Count 4.17 mill/uL (4.20-5.40); White Blood Cell (WBC) Count 5.7 thou/uL (4.8-10.8)
[2021-03-05 00:47] LABS: ALT (SGPT) 23 U/L (8-55); AST (SGOT) 22 U/L (5-34); Albumin 3.6 g/dL (3.4-4.8); Alkaline Phosphatase 62 U/L (40-110); Anion Gap 11 mmol/L (10-20); BUN (Urea Nitrogen) 27 mg/dL (9.8-20.1); Bilirubin, Total 0.5 mg/dL (0.2-1.2); Calc. Creatinine Clearance 0 mL/min (70-130); Calcium 8.9 mg/dL (7.8-10.44); Carbon Dioxide 23 mmol/L (23-31); Chloride 108 mmol/L (98-107); Globulin 2.3 g/dL (2.4-3.5); Glucose 98 mg/dL (83-110); Potassium 4.4 mmol/L (3.5-5.1); Protein, Total 5.9 g/dL (5.8-8.1); Sodium 138 mmol/L (136-145)
[2021-03-05 01:16] LABS: Bilirubin Negative (Negative); Blood, Urine Negative (Negative); Glucose, Urine (Dipstick) Negative (Negative); Ketone, Urine Negative (Negative); Leukocyte Negative (Negative); Nitrite Negative (Negative); Protein, Urine (Dipstick) Negative (Neg-Trace); Urobilinogen 0.2 mg/dL (Less than 2); pH, Urine 6.5 (5.0-9.0)
[2021-03-05 01:17] LABS: Clarity Clear (Clear)
== END 2021-03-05 02:10 | disposition home or self-care (01) ==
LOC: ERS 23:39 → EEVIPCON 23:39 → ERS 03-05 02:10
DX: I95.9 Hypotension, unspecified (principal); T50.905A Adverse effect of unspecified drugs, medicaments and biological substances, initial encounter; I10 Essential (primary) hypertension; E78.00 Pure hypercholesterolemia, unspecified; I25.10 Atherosclerotic heart disease of native coronary artery without angina pectoris; Z87.891 Personal history of nicotine dependence; Z79.01 Long term (current) use of anticoagulants; Z79.899 Other long term (current) drug therapy
CPT/HCPCS: 36415; 71045; 80053; 81003; 85025; 93005

== ENCOUNTER 2021-10-03 12:43 | Emergency (ER) | payer MEDICARE ==
[2021-10-03 14:12] LABS: #Lymphocytes 0.5 thou/uL (1.20-3.40); #Monocytes 0.7 thou/uL (0.11-0.59); #Neutrophils 7.1 thou/uL (1.40-6.50); %Basophils 0.4 % (0.0-1.0); %Eosinophils 0.3 % (0.0-10.0); %Lymphocytes 5.9 % (21.0-51.0); %Monocytes 8.3 % (0.0-10.0); %Neutrophils 85.2 % (42.0-75.0); Hemoglobin 13.8 g/dL (12.0-16.0); Mean Corpuscular HGB CONC 33.7 g/dL (32.0-36.0); Mean Corpuscular Hemoglobin 30.4 pg (27.0-31.0); Mean Corpuscular Volume 90.3 fL (78.0-98.0); Mean Platelet Volume 8.9 fL (7.4-10.4); Platelet Count 175 thou/uL (130-400); RBC Distribution Width 12.4 % (11.5-14.5); Red Blood Cell (RBC) Count 4.54 mill/uL (4.20-5.40); White Blood Cell (WBC) Count 8.4 thou/uL (4.8-10.8)
[2021-10-03 14:33] LABS: ALT (SGPT) 24 U/L (8-55); AST (SGOT) 70 U/L (5-34); Albumin 3.9 g/dL (3.4-4.8); Alkaline Phosphatase 80 U/L (40-110); Anion Gap 13 mmol/L (10-20); BUN (Urea Nitrogen) 16 mg/dL (9.8-20.1); Bilirubin, Total 0.6 mg/dL (0.2-1.2); Calc. Creatinine Clearance 0 mL/min (70-130); Calcium 9.7 mg/dL (7.8-10.44); Carbon Dioxide 26 mmol/L (23-31); Chloride 100 mmol/L (98-107); Globulin 2.6 g/dL (2.4-3.5); Glucose 108 mg/dL (83-110); Potassium 4.3 mmol/L (3.5-5.1); Protein, Total 6.5 g/dL (5.8-8.1); Sodium 135 mmol/L (136-145)
[2021-10-03 15:09] LABS: Bilirubin Negative (Negative); Blood, Urine Large (Negative); Glucose, Urine (Dipstick) Negative (Negative); Ketone, Urine Negative (Negative); Leukocyte Negative (Negative); Nitrite Negative (Negative); Protein, Urine (Dipstick) Trace mg/dL (Neg-Trace); Specific Gravity, Urine 1.015 (1.005-1.030); Urobilinogen 0.2 mg/dL (Less than 2)
[2021-10-03 15:11] LABS: Clarity Hazy (Clear)
[2021-10-03 15:18] LABS: SARS-CoV-2 NAA Rapid Test Not Detected (NotDetected)
[2021-10-03 15:19] LABS: Bacteria/HPF None Seen HPF (None Seen); RBC/HPF 0-3 HPF (0-3); Squamous Epithelial None Seen HPF (0-3); WBC/HPF None Seen HPF (0-3)
== END 2021-10-03 17:35 | disposition home or self-care (01) ==
LOC: ERS 12:43
DX: R53.1 Weakness (principal); R50.9 Fever, unspecified; T50.B95A Adverse effect of other viral vaccines, initial encounter; F03.90 Unspecified dementia, unspecified severity, without behavioral disturbance, psychotic disturbance, mood disturbance, and anxiety; E78.00 Pure hypercholesterolemia, unspecified; I12.9 Hypertensive chronic kidney disease with stage 1 through stage 4 chronic kidney disease, or unspecified chronic kidney disease; N18.9 Chronic kidney disease, unspecified; I25.10 Atherosclerotic heart disease of native coronary artery without angina pectoris; Z20.822 Contact with and (suspected) exposure to COVID-19; Z87.19 Personal history of other diseases of the digestive system; Z87.891 Personal history of nicotine dependence; Z79.899 Other long term (current) drug therapy
CPT/HCPCS: 0240U; 70450; 71045; 80053; 83605; 84484; 85025; 87040; 87086; 93005; 36415; 51701; 81003; 81015

== ENCOUNTER 2023-05-20 14:16 | Observation (INO) | payer OTHER ==
[2023-05-20 14:50] LABS: #Basophils 0.1 thou/uL (0.0-0.2); #Eosinphils 0.3 thou/uL (0.0-0.7); #Monocytes 0.9 thou/uL (0.11-0.59); #Neutrophils 5.6 thou/uL (1.40-6.50); %Basophils 0.6 % (0.0-1.0); %Lymphocytes 20.2 % (21.0-51.0); %Monocytes 10.2 % (0.0-10.0); %Neutrophils 64.7 % (42.0-75.0); Hematocrit 39.7 % (36.0-47.0); Hemoglobin 13.1 g/dL (12.0-16.0); Mean Corpuscular Hemoglobin 28.9 pg (27.0-31.0); Mean Corpuscular Volume 87.6 fl (78.0-98.0); Mean Platelet Volume 11.9 fL (7.4-10.4); Platelet Count 219 10x3/uL (130-400); RBC Distribution Width 13.4 % (11.5-14.5); Red Blood Cell (RBC) Count 4.53 mill/uL (4.20-5.40); White Blood Cell (WBC) Count 8.6 10x3/uL (4.8-10.8)
[2023-05-20 15:17] LABS: Troponin I 0.012 ng/mL (< 0.028)
[2023-05-20 15:19] LABS: Anion Gap 14 mmol/L (10-20); BUN (Urea Nitrogen) 19 mg/dL (9.8-20.1); Calc. Creatinine Clearance 0 mL/min (70-130); Carbon Dioxide 27 mmol/L (23-31); Chloride 99 mmol/L (98-107); Estimated GFR 45; Sodium 136 mmol/L (136-145)
[2023-05-20 15:20] LABS: Glucose 88 mg/dL (83-110)
[2023-05-20 15:28] LABS: ALT (SGPT) 19 U/L (8-55); AST (SGOT) 22 U/L (5-34); Albumin 3.9 g/dL (3.4-4.8); Alkaline Phosphatase 73 U/L (40-110); Bilirubin, Total 0.5 mg/dL (0.2-1.2); Globulin 3.4 g/dL (2.4-3.5); Protein, Total 7.3 g/dL (5.8-8.1)
[2023-05-20] MEDS ORDERED: Aspirin Chewable 81 MG TAB ONE (16:16)
[2023-05-20 16:22] LABS: Bacteria/HPF None Seen HPF (None Seen); Bilirubin Negative (Negative); Blood, Urine Negative (Negative); CAUTI Indications for Culture Dysuria,urgency,freq; Clarity Clear (Clear); Glucose, Urine (Dipstick) Normal (Negative); Ketone, Urine Negative (Negative); Leukocyte Negative Leu/uL (Negative); Nitrite Negative (Negative); Protein, Urine (Dipstick) Negative (Neg-Trace); RBC/HPF None Seen HPF (0-3); Specific Gravity, Urine 1.009 (1.002-1.036); Squamous Epithelial None Seen HPF (0-3); Urobilinogen Normal mg/dL (Less than 2); WBC/HPF 0-3 HPF (0-3); pH, Urine 6.5 (5.0-9.0)
[2023-05-20 16:23] LABS: Urine Culture Reflex No No
[2023-05-20] MEDS ORDERED: Guaifenesin DM 100-10/5 ML UDCUP PO PRN (17:52)
[2023-05-20] MEDS ORDERED: hydrALAZINE 20 MG/ML VIAL SLOW IVP PRN (17:55)
[2023-05-20 18:19] VITALS: BMI 18.7
[2023-05-20] MEDS: Sodium Chloride 0.9% 1,000 ML IV SCH (18:32)
[2023-05-20] MEDS ORDERED: QUEtiapine 200 MG TAB PO SCH (21:00)
[2023-05-20] MEDS ORDERED: Atorvastatin Calcium 20 MG TAB PO SCH (21:00)
[2023-05-20] MEDS ORDERED: Brimonidine Tartrate 0.2% Ophth Soln 5 ml Bottle EA EYE SCH (21:00)
[2023-05-20] MEDS ORDERED: Netarsudil Mesylate [Rhopressa] 2.5 ML Drops EA EYE SCH (21:00)
[2023-05-20] MEDS: Heparin 5,000 UNITS/ML VIAL SC SCH (21:20)
[2023-05-20] MEDS: Lisinopril 10 MG TAB PO SCH (21:21)
[2023-05-20] MEDS: HYDROcodone/Acetaminophen 5/325 mg Tablet PO PRN (21:21)
[2023-05-20 21:57] LABS: Troponin I Less than 0.010 ng/mL (< 0.028)
[2023-05-20 22:25] LABS: SARS-CoV-2 NAA Rapid Test Not Detected (NotDetected)
[2023-05-21 05:29] LABS: #Eosinphils 0.3 thou/uL (0.0-0.7); #Monocytes 0.6 thou/uL (0.11-0.59); #Neutrophils 2.3 thou/uL (1.40-6.50); %Basophils 0.6 % (0.0-1.0); %Eosinophils 6.3 % (0.0-10.0); %Lymphocytes 39.2 % (21.0-51.0); %Monocytes 10.7 % (0.0-10.0); %Neutrophils 42.8 % (42.0-75.0); Hematocrit 33.4 % (36.0-47.0); Hemoglobin 10.7 g/dL (12.0-16.0); Mean Platelet Volume 11.9 fL (7.4-10.4); Platelet Count 181 10x3/uL (130-400); RBC Distribution Width 13.6 % (11.5-14.5); Red Blood Cell (RBC) Count 3.69 mill/uL (4.20-5.40); White Blood Cell (WBC) Count 5.4 10x3/uL (4.8-10.8)
[2023-05-21 05:34] LABS: Mean Corpuscular Volume 90.5 fl (78.0-98.0)
[2023-05-21 05:55] LABS: Anion Gap 13 mmol/L (10-20); BUN (Urea Nitrogen) 23 mg/dL (9.8-20.1); Calc. Creatinine Clearance 28 mL/min (70-130); Calcium 8.7 mg/dL (7.8-10.44); Carbon Dioxide 25 mmol/L (23-31); Chloride 104 mmol/L (98-107); Estimated GFR 46; Glucose 84 mg/dL (83-110); Sodium 138 mmol/L (136-145)
[2023-05-21] MEDS ORDERED: Trospium 20 MG TAB PO SCH (09:00)
[2023-05-21] MEDS: Lisinopril 10 MG TAB PO SCH (09:58)
[2023-05-21] MEDS: Heparin 5,000 UNITS/ML VIAL SC SCH (10:00)
[2023-05-21] MEDS: Sodium Chloride 0.9% 1,000 ML IV SCH (10:04)
[2023-05-21] MEDS: HYDROcodone/Acetaminophen 5/325 mg Tablet PO PRN (11:21)
[2023-05-21 12:35] LABS: Hematocrit 33.8 % (36.0-47.0); Hemoglobin 10.9 g/dL (12.0-16.0); Mean Corpuscular HGB CONC 32.2 g/dL (32.0-36.0); Mean Corpuscular Hemoglobin 29.1 pg (27.0-31.0); Mean Corpuscular Volume 90.4 fl (78.0-98.0); Mean Platelet Volume 11.7 fL (7.4-10.4); Platelet Count 189 10x3/uL (130-400); RBC Distribution Width 13.7 % (11.5-14.5); Red Blood Cell (RBC) Count 3.74 mill/uL (4.20-5.40); White Blood Cell (WBC) Count 7.6 10x3/uL (4.8-10.8)
[2023-05-21 12:52] VITALS: BP 126/59; TEMP 98.2
[2023-05-21 12:59] LABS: Anion Gap 11 mmol/L (10-20); BUN (Urea Nitrogen) 20 mg/dL (9.8-20.1); Calc. Creatinine Clearance 31 mL/min (70-130); Calcium 8.6 mg/dL (7.8-10.44); Carbon Dioxide 25 mmol/L (23-31); Chloride 106 mmol/L (98-107); Estimated GFR 53; Glucose 121 mg/dL (83-110); Potassium 4.2 mmol/L (3.5-5.1); Sodium 138 mmol/L (136-145)
== END 2023-05-21 15:30 | disposition home or self-care (01) ==
LOC: ERS 14:16 → 2NO 16:41
PROVIDERS: ADMIT Internal Medicine; ATTEND Internal Medicine
DX: M25.511 Pain in right shoulder (principal); M54.9 Dorsalgia, unspecified; R05.9 Cough, unspecified; E03.9 Hypothyroidism, unspecified; N18.2 Chronic kidney disease, stage 2 (mild); I12.9 Hypertensive chronic kidney disease with stage 1 through stage 4 chronic kidney disease, or unspecified chronic kidney disease; E78.5 Hyperlipidemia, unspecified; I10 Essential (primary) hypertension; Z90.49 Acquired absence of other specified parts of digestive tract; Z90.710 Acquired absence of both cervix and uterus; Z79.890 Hormone replacement therapy; Z79.899 Other long term (current) drug therapy; Z87.891 Personal history of nicotine dependence
CPT/HCPCS: 71045; 80048 ×2; 80053; 81001; 83605; 84484 ×2; 85025 ×2; 85027; 93005; 94640 ×3; 99285; U0002; 36415; 96372; G0378; J1644; J7050; J7611

== ENCOUNTER 2024-05-20 10:47 | Outpatient (CLI) | payer OTHER | END 2024-05-20 10:48 | disposition home or self-care (01) | LOC: BICMAMMO 10:47 | PROVIDERS: ATTEND Family Medicine | DX: Z12.31 Encounter for screening mammogram for malignant neoplasm of breast (principal); Z80.3 Family history of malignant neoplasm of breast; Z91.89 Other specified personal risk factors, not elsewhere classified | CPT/HCPCS: 77063; 77067 ==

== ENCOUNTER 2025-05-25 16:29 | Emergency (ER) | payer OTHER ==
[2025-05-25 20:01] LABS: #Basophils 0.04 10x3/uL (0.0-0.2); #Eosinophils 0.29 10x3/uL (0.0-0.7); #Monocytes 0.73 10x3/uL (0.11-0.59); #Neutrophils 2.95 10x3/uL (1.40-6.50); %Basophils 0.7 % (0.0-1.0); %Eosinophils 5.1 % (0.0-10.0); %Lymphocytes 29.2 % (21.0-51.0); %Monocytes 12.8 % (0.0-10.0); %Neutrophils 51.8 % (42.0-75.0); Hematocrit 39.3 % (36.0-47.0); Hemoglobin 12.5 g/dL (12.0-16.0); Mean Corpuscular Hemoglobin 28.5 pg (27.0-31.0); Mean Corpuscular Volume 89.5 fL (78.0-98.0); Platelet Count 173 10x3/uL (130-400); Red Blood Cell (RBC) Count 4.39 mill/uL (4.20-5.40); White Blood Cell (WBC) Count 5.69 10x3/uL (4.8-10.8)
== END 2025-05-25 20:30 | disposition home or self-care (01) ==
LOC: ERS 16:29
DX: S80.11XA Contusion of right lower leg, initial encounter (principal); T14.8XXA Other injury of unspecified body region, initial encounter; R23.3 Spontaneous ecchymoses; I10 Essential (primary) hypertension; E78.00 Pure hypercholesterolemia, unspecified; I25.10 Atherosclerotic heart disease of native coronary artery without angina pectoris; Z55.6 Problems related to health literacy; Z87.891 Personal history of nicotine dependence; Z79.82 Long term (current) use of aspirin; Z79.899 Other long term (current) drug therapy; V09.9XXA Pedestrian injured in unspecified transport accident, initial encounter
CPT/HCPCS: 10060; 85025